=== PATIENT | female | born 1980 | race Two or more races ===

== ENCOUNTER 2024-12-24 08:06 | Outpatient (REF) | payer OTHER, SELFPAY ==
--- OUTSIDE RECORDS SUMMARY | 2024-12-24 11:22 | XMS_ITS | Clinical Summary ---
Author Organization [facility] Address [address] [place] [id number] Care Team Providers Care Frontend Engineer Name Role Phone Terrance Aguirre MD Primary Care Provider [phone] Allergies Active Allergy Reactions Criticality Noted Date [...] plaquenil She will check labs today at [facility] She will call senior firewall engineer to schedule her plaquenil clearance eye examination Allergic contact dermatitis due to metals 2017 Assessment & Plan (05/13/2018 2:38 PM EDT): To nickel (patient breaks with exposure to non sliver and gold metals) And to bandage adhesive (breaks out when wearing bandaids) Migraine Encounters Date Type Department Care Team Description 10/19/2024 Orders Only [facility] of Internal Medicine [address] [place] [address] Terrance Aguirre MD Low TSH level (Primary Dx) 10/16/2024 10:00 AM EST Office Visit [facility] Department of Internal Medicine [address] [place] [address] Terrance Aguirer MD Constipation, unspecified constipation type (Primary Dx); High triglycerides; Other specified hypothyroidism 10/16/2024 9:30 AM EST Lab [facility] Laboratory Draw Station [address] [place], [place] [id number] Annual physical exam; Urine abnormality 10/16/2024 Orders Only [facility] Department of Internal Medicine [address] [place] [address] Terrance Aguirre MD Urine abnormality (Primary Dx) [...] = 0.6 oz pur e alcohol) Occasionally Tang Songities Answer Date Recorded In the past 12 months has e [employer], gas, oil, or water [email or web address] threatened to shut off services in your home? No 10/16/2024 AUDIT-C Answer Date Recorded Q1: How often do you have a drink containing alc ohol? Monthly or less 04/12/2021 Average Number of Drinks Not on file 021 Frequency of Binge Drinking Not on file 03/25 PHQ-2 Answer Date Recorded PHQ-2 Score 0 02/07/2024 [facility] Occupat ional [facility] - Occupational Stress [...] [facility] were you [facility] or living in a fdc (including now)? No 10/16/2024 Comments No Sex [...] Upcoming Encounters Date Type Department Care Team ([facility] st Contact Info) Description 02/26/2025 9:40 AM EDT Office Visit [facility] Department of Internal Medicine [address] [place] [address] Terrance Aguirre MD [address] [facility] [address] FLOOR [facility] [address] Health Maintenance Due Date Last Done Comments [...] MD LAB URINE ORDERABLES Abril l Result [facility] [address] [place] [address], [place] [phone] * Harding boric acid tube, urine (10/16/2024 9:31 AM EST) Urine Urine specimen obtained by clean catch procedure / Unknown Non-blood Collection / Unknown 10/16/2024 9:31 AM EST 10/16/2024 9:36 AM EST Terrance Aguirre MD LAB MICROBIOLOGY - GENERA L ORDERABLES Final Result Performing Organization Address [facility] Co de Phone Number [facility] [address] [place] [address], [place] [phone] * (ABNORMAL) Complete Blood Count with Auto Differential (10/16/2024 9:31 AM EST) Pathologist [facility] [place] White Cell Count 7.1 3.6 - 11.0 10*3/uL 10/16/2024 12:[address] [facility] Red Cell Count 4.66 3.80 - 5.20 10*6/??L 10/16/2024 12:23 PM [facility] Hemoglobin 13.7 12.0 - 16.0 g/dL 10/16/2024 12:23 PM [facility] Hematocrit 41.4 35.0 - 47.0 % 10/16/2024 12:23 PM [facility] MCV 88.8 80.0 - 100.0 fL 10/16/2024 12:23 PM [facility] MCH 29.4 26.0 - 34.0 pg 10/16/2024 12:23 PM [facility] MCHC 33.1 32.0 - 36.0 g/dL 10/16/2024 12:23 PM [facility] RBC Distribution Width 13.2 11.6 - 14.8 % 10/16/2024 12:23 PM [facility] Platelet count 349 150 - 440 10*3/uL 10/16/2024 12:23 PM [facility] Neutrophils 53.9 40.0 - 70.0 % 10/16/2024 12:23 PM [facility] Immature Granulocytes 0.6 0.0 - 0.6 % 10/16/2024 12:23 PM [facility] Lymphocytes 33.8 20.0 - 50.0 % 10/16/2024 12:23 PM [facility] Monocytes 5.8 4.0 - 12.0 % 10/16/2024 12:23 PM [facility] Eosinophils 5.2 0.0 - 6.0 % 10/16/2024 12:23 PM [facility] Basophils 0.7 0.0 - 2.0 % 10/16/2024 12:23 PM [facility] Absolute Neutrophil Ct. 3.8 1.4 - 6.3 10*3/uL 10/16/2024 12:23 PM [facility] Absolute Lymphocyte Ct. 2.4 0.7 - 4.5 10*3/uL 10/16/2024 12:23 PM [facility] Absolute Monocyte Ct. 0.4 0.2 - 0.8 10*3/uL 10/16/2024 12:23 PM [facility] Absolute Eosinophil Ct. 0.4(H) 0.0 - 0.3 10*3/uL 10/16/2024 12:23 PM [facility] Absolute Basophil Ct. 0.1 0.0 - 0.2 10*3/uL 10/16/2024 12:23 PM [facility] nRBC 0.0 0.0 - 0.0 % 10/16/2024 12:23 PM [facility] Blood Venous blood specimen / Unknown Venipuncture / Unknown 10/16/2024 9:31 AM EST 10/16/2024 9:36 AM EST Terrance Aguirre MD LAB BLOOD ORDERABLES Abril l Result Performing Organization Address [facility] Co de Phone Number [facility] [address] [place] [address], * Neisseria gonorrhea NAAT (10/16/2024 9:31 AM EST) Neisseria gonorrhoeae ribosomal RNA Negative Negative 10/19/2024 2:06 PM EST [facility] Comment:Specimen is presumpt ively negative for Neisseria gonorrhoeae ribosomal RNA (rRNA). A negative result does not preclude the presence of a Neisseria gonorrhoeae infection because results are dependent on adequate specimen collection, absence of inhibitors, and sufficient rRNA to be detected. Urine Urine specimen / Unknown Non-blood Collection / Unknown 10/16/2024 9:31 AM EST 10/16/2024 9:36 AM EST Narrative [facility] - 10/19/2024 2:06 PM EST The Aptima Combo 2 Assay is a second-generation nucleic acid amplification test (NAAT) that utilizes target capture, Pin Sorter And Bagger-Mediated Amplification (TMA??), and Dual Kinetic Assay (DKA) technologies for the qualitative detection and differentiation of ribosomal RNA (rRNA) from Chlamydia trachomatis (CT) and / or Neisseria gonorrhoeae (GC). Terrance Aguirre MD LAB MICROBIOLOGY - GENERA L ORDERABLES Final Result Performing Organization Address City/[facility]/ZIP Co de Phone Number [facility] [address] [place] [address], * Chlamydia trachomatis NAAT (10/16/2024 9:31 AM EST) Chlamydia trachomatis ribosomal RNA Negative Negative 10/19/2024 2:06 PM EST [facility] Comment:Specimen is presumpt ively negative for Chlamydia trachomatis ribosomal RNA (rRNA). A negative result does not preclude the presence of a Chlamydia trachomatis infection because results are dependent on adequate specimen collection, absence of inhibitors, and sufficient rRNA to be detected. Urine Urine specimen / Unknown Non-blood Collection / Unknown 10/16/2024 9:31 AM EST 10/16/2024 9:36 AM EST Narrative [facility] - 10/19/2024 2:06 PM EST The Aptima Combo 2 Assay is a second-generation nucleic acid amplification test (NAAT) that utilizes target capture, Pin Sorter And Bagger-Mediated Amplification (TMA??), and Dual Kinetic Assay (DKA) technologies for the qualitative detection and differentiation of ribosomal RNA (rRNA) from Chlamydia trachomatis (CT) and / or Neisseria gonorrhoeae (GC). Terrance Aguirre MD LAB MICROBIOLOGY - GENERA L ORDERABLES Final Result [facility] [address] [place] [address], [place] [phone] * (ABNORMAL) Urinalysis, Complete - macroscopic and microscopic (10/16/2024 9:31 AM EST) Color Yellow Yellow, Straw, Dark yellow 10/16/2024 12:36 PM EST [facility] Clarity Clear Clear 10/16/2024 12:36 PM EST [facility] Specific [place] 1.025 >1.005 - <1.030 10/16/2024 12:36 PM EST [facility] pH 6.0 5.0 - 8.0 10/16/2024 12:[address] [facility] Glucose Qual Negative Negative mg/dL 10/16/2024 12:36 PM [facility] Protein, Qual Negative Negative, Trace mg/dL 10/16/2024 12:36 PM EST [facility] Ketones, Urine Negative Negative mg/dL 10/16/2024 12:36 PM EST [facility] Bilirubin, Urine Negative Negative 10/16/20 12:36 PM EST [facility] Hemoglobin Small(A) Negative 10/16/2024 12:36 PM EST [facility] Nitrite Positive(A) Negative 10/16/2024 12:36 PM EST [facility] Urobilinogen 1.0 0.2 - 1.0 EU/dL 10/16/2024 12:36 PM EST [facility] Leukocytes Small(A) Negative 10/16/2024 12:36 PM EST [facility] WBC 11-20(A) 0 - 5 /hpf 10/16/2024 12:36 PM EST [facility] RBC 11-20(A) 0 - 2 /hpf 10/16/2024 12:36 PM EST [facility] Epithelial Cells Few(A) None Seen /hpf 10/16/2024 12:36 PM EST [facility] Bacteria Many(A) Negative 10/16/2024 12:36 PM EST [facility] Casts 3-5 0-2, 3-5 lpf 10/16/2024 12:36 PM EST [facility] Urine Urine specimen obtained by clean catch procedure / Unknown Non-blood Collection / Unknown 10/16/2024 9:31 AM EST 10/16/2024 9:36 AM EST us Terrance Aguirre MD LAB URINE ORDERABLES Abril enciso Result [facility] [address] [place] [address], * (ABNORMAL) Urine culture (10/16/2024 9:31 AM EST) Urine Culture >100,000 cfu/mL Escherichia coli(A) CUCO 10/18/2024 12:29 PM EST [facility] Urine Urine specimen obtained by [...] L ORDERABLES Final Result Performing Organization Address City/[facility]/ZIP Co de Phone Number [facility] [address] [place] [address], * (ABNORMAL) TSH (10/16/2024 9:31 AM EST) TSH 0.31(L) 0.35 - 4.94 uIU/mL 10/16/2024 12:51 PM EST [facility] Blood Venous blood specimen / Unknown Venipuncture / Unknown 10/16/2024 9:31 AM EST 10/16/2024 9:36 AM EST Terrance Aguirre MD LAB BLOOD ORDERABLES NO S TAT Final Result [facility] [address] [place] [address], [place] [phone] * Hemoglobin A1c (10/16/2024 9:31 AM EST) Hemoglobin A1C 5.5 4.4 - 6.4 % 10/16/2024 12:27 PM EST [facility] Blood Venous blood specimen / Unknown Venipuncture / Unknown 10/16/2024 9:31 AM EST 10/16/2024 9:36 AM EST Narrative [facility] - 10/16/2024 12:27 PM EST [...] BLOOD ORDERABLES NO S TAT Final Result [facility] [address] [place] [address], * Lipid paneL, reflex to LDL cholesterol, direct (10/16/2024 9:31 AM EST) Triglycerides 254 mg/dL 10/16/2024 12:39 PM EST [facility] Comment: Normal: ? Less than [...] High Chol in Adults, March 2001. (2013)Recommendations: [place] [employer] Association/[place] College of Cardiology guidelines for cardiovascular/stroke risk are based on age, sex, race, total cholesterol, HDL cholesterol, blood pressure, blood pressure medication use, diabetes and smoking status. An AHA/ACC risk calculator can be found at http://www.cvriskcalculator.com. Cholesterol, HDL 35 mg/dL 10/16/20 12:39 PM [facility] Comment: High ?60 mg/dL or higher ? Low ? Less than 40 mg/dL ? Recommendations Adult Treatment Panel CDC: NIH Pub No [id number] 3rd report Earlene Chol Ed Prog (NCEP) Expert Panel ??on Detec, Eval, and Treat of High Cho in Adults, March 2001. (2013) Recommendations: [place] Heart Association/[place] College of Cardiology guidelines for cardiovascular/stroke risk are based on age, sex, race, total cholesterol, HDL cholesterol, blood pressure, blood pressure medication use, diabetes and smoking status. An AHA/ACC risk calculator can be found at http://www.cvriskcalculator.com. Fasting Specimen Yes 10/16/20 12:39 PM [facility] LDL Calculated 69 mg/dL 10/16/2024 12:39 PM [facility] Comment: Optimal ?Less than 100 mg/dL New optimal/above optimal ??100 - 129 mg/dL Borderline high ?130 - 159 mg/dL High ? 160 - 189 mg/dL Very high ?190 mg/dL or higher Blood Venous blood specimen / Unknown Venipuncture / Unknown 10/16/2024 9:31 AM EST 10/16/2024 9:36 AM EST us Terrance Aguirre MD LAB BLOOD ORDERABLES NO S TAT Final Result [facility] [address] [place] [address], * (ABNORMAL) Comprehensive metabolic panel (10/16/2024 9:31 AM EST) Total Bilirubin 0.4 0.1 - 1.2 mg/dL 10/16/2024 12:39 PM EST [facility] Calcium 9.8 8.4 - 10.2 mg/dL 10/16/2024 12:39 PM [facility] CO2 21(L) 23 - 32 mmol/L 10/16/2024 12:39 PM EST [facility] Chloride 109 100 - 111 mmol/L 10/16/2024 12:39 PM [facility] Creatinine 0.70 0.60 - 1.20 mg/dL 10/16/2024 12:39 PM [facility] Glucose 86 70 - 200 mg/dL 10/16/2024 12:39 PM [facility] Comment: Normal fasting glucose ?75-99 [...] 39 - 113 U/L 10/16/2024 12:39 PM [facility] Potassium 3.9 3.6 - 5.1 mmol/L 10/16/2024 12:39 PM [facility] Sodium 140 137 - 144 mmol/L 10/16/2024 12:39 PM [facility] Anion gap 10 3 - 11 mmol/L 10/16/2024 12:39 PM [facility] AST 15(L) 17 - 35 U/L 10/16/2024 12:39 PM [facility] ALT (SGPT) 19 8 - 39 U/L 10/16/2024 12:39 PM [facility] BUN 14 8 - 24 mg/dL 10/16/2024 12:39 PM [facility] Albumin 4.2 3.8 - 5.3 g/dL 10/16/2024 12:39 PM [facility] eGFR 109 >60 mL/min/1. 73m*2 10/16/2024 12:39 PM [facility] Comment: Calculation based on the [...] ? 75 ml/min/1.73 m2 ? Pursuant to [place] Public Act 06-120(1)(b)(1). ?? The 2020 CKD-EPI calculation used to estimate eGFR has only been validated for patients 18 years or older. Total Protein 7.2 6.2 - 8.1 g/dL 10/16/2024 12:39 PM EST [facility] Blood Venous blood specimen / Unknown Venipuncture / Unknown 10/16/2024 9:31 AM EST 10/16/2024 9:36 AM EST us Terrance Aguirre MD LAB BLOOD ORDERABLES Abril enciso Result [facility] [address] [place] [address], * HIV combo antigen/antibody (07/23/2022 10:01 AM EDT) HIV Combo AB/AG Negative Negative 07/23/2022 1:45 PM EDT [facility] Blood Venous blood specimen / Unknown Venipuncture / Unknown 07/23/2022 10:01 AM EDT 07/23/2022 10:01 AM EDT Narrative [facility] - 07/23/2022 1:45 PM EDT This test is a 4th generation HIV Antigen-Antibody Combination assay, using a chemiluminescent microparticle immunoassay, for the simultaneous qualitative detection of human immuno- deficiency virus (HIV) p24 antigen and antibodies to HIV type 1 (HIV-1) and/or HIV type 2 (HIV-2) in human serum or plasma. The The Micro HIV Ag/Ab Combo assay is intended to [...] BLOOD ORDERABLES NO S TAT Final Result [facility] [address] [place] [address], [place] [phone] * Hepatitis C antibody (07/17/2019 7:42 AM EDT) Hepatitis C Ab Negative Negative 07/17/2019 1:30 PM EDT [facility] Comment:Anti-HCV (HCVAb) Not Detected. Patient is presumed not to be infected with HCV. Blood specimen (specimen) Venous blood specimen / Unknown Venipuncture / Unknown 07/17/2019 7:42 AM EDT 07/17/2019 7:43 AM EDT us Terrance Aguirre MD LAB BLOOD ORDERABLES NO S TAT Final Result [facility] [address] [place] [address], from Last 3 Months or Most Recently Relevant to Health Maintenance Insurance [employer] PPO Care Teams Frontend Engineer Relationship Specialty Start Date End Date Terrance Aguirre MD [address] [facility] [address] FLOOR [facility] [place] [address] PCP - General Internal Medicine 07/16/19
[2024-12-24 16:55] LABS: Urine Cytology See Pathology rpt
== END 2024-12-24 08:07 | disposition home or self-care (01) ==
LOC: HO.LAB 08:06
PROVIDERS: Visit Provider Nurse Practitioner Family
DX: R31.29 Other microscopic hematuria (principal); N39.0 Urinary tract infection, site not specified
CPT/HCPCS: 88112; 99202

== ENCOUNTER 2024-12-24 08:06 | Outpatient (AMB) | payer OTHER, SELFPAY ==
--- NOTE | 2024-12-24 08:11 | A.OFFVIS_ITS ---
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: No Allergies copper Allergy (Verified 12/24/24 08:12) Unknown zolmitriptan [From Zomig] Allergy (Verified 12/24/24 08:12) Unknown propanolol Allergy (Uncoded 12/24/24 08:12) Unknown latex Adverse Reaction (Mild, Uncoded 12/24/24 08:19) Itching Medication List - Last Reconciled 12/24/24 by CANDY LeongP- albuterol sulfate 90 mcg/actuation inhalation levonorgestrel-ethinyl estrad 0.15-0.03 mg (Levora-28) tabs PO levothyroxine (Synthroid) 125 mcg PO DAILY Is last menstrual period known: Yes Post menopausal: No Patient : No HPI Comments Details: Yue is a very pleasant 44-year-old female patient of Dr. Guillory. She has a past medical history of sleep apnea, migraines, hypothyroidism, hyperlipidemia, and asthma. She presents to the office today as a new patient for recurrent urinary tract infections. In discussion with the patient today she reports over the summer having multiple months of recurrent UTIs and UTI like symptoms at which time she followed up with her primary care provider at the [place] at which time recommendations were made for urology referral for further assessment evaluation. She reports over the last 2 months she has had no bothersome urinary issues or concerns. She reports a previous history of following up with Dr. Coreas a few years ago for her longstanding history of microscopic hematuria. She reports typical UTI like symptoms are lower back pain, foul-smelling urine, and pruritus to the vaginal area. She also reports having followed up with her ob gyn physician assistant although she has not been sexually active in over a year and had workup for STDs that were within normal limits. In office urinalysis results reviewed with the patient today negative leukocytes negative nitrates, 3+ microscopic hematuria. She denies any previous history of nicotine dependence however was in the active and believes she had known chemical exposure. We discussed at length potential causes of microscopic hematuria as well as recurrent urinary tract infections. She does report a longstanding history of constipation. PVR 0. We discussed further treatment options and risks and benefits of these treatment options. Will obtain retroperitoneal ultrasound for further assessment evaluation. She discusses her upcoming trip overseas next month for approximately 1 month. She otherwise offers no other issues or concerns at this time. [facility] Medical History Unspecified asthma, uncomplicated Unspecified abnormal cytological findings in specimens from cervix uteri Other unknown and unspecified cause of morbidity or mortality Sleep apnea Peptic ulcer Overweight Other microscopic hematuria Migraine without aura, not intractable, without status migrainosus Knee pain Hypothyroidism Hyperlipidemia, unspecified Encounter for other general counseling and advice on contraception Disorder of thyroid Contact with and (suspected) exposure to other hazardous substances Contact with and (suspected) exposure to other environmental pollution Asymptomatic varicose veins of unspecified lower extremity Abdominal pain Review of Systems Const All systems reviewed & are unremarkable except as noted in HPI and below Physical Exam Const General: cooperative, healthy appearing, comfortable, no acute distress, well developed, alert and awake Orientation/consciousness: patient oriented x3 Limitations: no limitations HEENT Head: Yes normal to inspection, Yes normocephalic and Yes atraumatic Ears: hearing grossly normal bilaterally Eyes General: appearance normal, both eyes and all related structures Neck Neck: Yes normal visual inspection and Yes trachea midline Chest Chest palpation & inspection: normal inspection of the chest Resp Effort & Inspection: normal respiratory effort and able to speak in complete sentences Cardio Rate: regular rate GI Inspection: Yes normal to inspection General: Yes no CVA tenderness Back/Spine/Pelvis Back: no CVA tenderness Skin General skin exam: no rashes or lesions noted Neuro General: patient oriented x3 Extrem General: Yes normal to inspection Psych Appearance: grossly normal and well kempt Mental Status: mental status grossly normal Speech and movement: Normal speech and movement present and Clear speech present Affect: normal affect Attitude: cooperative Thought process: Normal thought process present Thought content: Normal thought content present Insight: Fair insight present (Psych) Judgement: Fair judgement present (Psych) Assessment & Plan Assessment & Plan (1) Recurrent urinary tract infection: Code(s): N39.0 - Urinary tract infection, site not specified Category: Medical (2) Microscopic hematuria: Code(s): R31.29 - Other microscopic hematuria Category: Medical Plan In office urinalysis results reviewed with the patient today; as noted above; w ill send for urine cytology. PVR 0 mL. We discussed at length potential causes of recurrent urinary tract infections as well as microscopic hematuria. We discussed interventions for recurrent urinary tract infections and risks and benefits of these interventions. All questions were answered. Will obtain retroperitoneal ultrasound for further assessment evaluation. Discussed UTI prevention with D mannose supplement, vitamin-C, increasing fluid intake, behavioral therapy with timed voiding, perineal hygiene and postcoital voiding, and management of constipation with stool softeners and increased fiber intake. We discussed possible near future microgen for further assessment evaluation. Follow-up in 1-3 months with imaging and PVR; or sooner with any issues, concerns, and or questions. Orders: Orders US retroperitoneal comp Today N39.0 - Urinary tract infection, site not specified Urine Cytology Today N39.0 - Urinary tract infection, site not specified, R31.29 - Other microscopic hematuria Patient Instructions: The patient had an opportunity to ask questions regarding the treatment plan. All questions were answered. Physical exam, labs, and imaging were discussed and reviewed in detail. As well as risks, benefits, and discussion of treatment choices. No major barriers to understanding were identified. The patient expressed understanding and agreement with the above treatment plan. The patient was made aware they should contact our office by phone for worsening of their current condition, the appearance of new symptoms, or with any questions or concerns. Compliance is encouraged with any medications and follow up testing that is ordered. It is a privilege to be allowed the opportunity to participate in? your urological care.? Again, if you have any questions or concerns If you have any questions or concerns please do not hesitate to contact me. The office is [phone]. This note is constructed using voice recognition software. While every effort has been made to ensure accuracy stenciling machine tender errors may have been included. Yours sincerely, ANAND Leong Coding Level of Care Code New Pt Level 3 (79024) Diagnoses Recurrent urinary tract infection N39.0 Microscopic hematuria R31.29
--- OUTSIDE RECORDS SUMMARY | 2024-12-24 10:58 | XMS_ITS | Data Portability ---
Author Organization [facility] [id number] Address [address] [place] [address] Assessment No assessment recorded. Plan of Treatment Reminders Order Date Submit Date Provider Last Modified By Organization Details Last Modified Time Details Appointments None recorded. Lab None recorded. Referral None recorded. Procedures None recorded. Surgeries None recorded. Imaging None recorded. Medication Orders prednisone 20 mg tablet 2023 024 [id number], [address], [place], [id number], 4 12:12:48 hydroxyzine HCl 25 mg tablet 2023 024 [id number], [address], [place], [id number], 4 12:12:15 Patient TargetsNo targets recorded. Patient InstructionsNo instructions recorded. Reason for Referral None Reported. Problems Name Problem SNOMED Code Status Onset Date Resolution Date Notes Provider Name and Address Organization Details Recorded Time Hypothyroidism 16968486 Active Ebony Carrie null, [place] - [facility] 4 10:45:09 Migraine 15962886 Active Ebony Carrie null, [place] - [facility] 4 10:45:16 Allergic contact dermatitis 687431789 Active 2023 Ankit Wen NP [address] [place], [address] , [place] - [facility] 4 11:54:00 Problem Notes None recorded. Procedures Surgical History Date Name Laterality Status Provider Name and Address Organization Details Recorded Time procedure on gallbladder completed Ebony Carrie PA - [facility] 06/29/2024 10:46:23 Imaging Results None recorded. Procedure Notes None recorded. Medical Equipment None Reported. Allergies No known drug allergies Medications Name Sig Start Date Stop Date Status Note LastModified by Organization Details LastModified Time prednisone 20 mg tablet Take 2 tablets every day by oral route in the morning for 4 days, for rash, inflamma tion, allergic . 2023 active Not Available Not Available Not Avai lable hydroxyzine HCl 25 mg tablet Take 1 tablet 3 times a day by oral route as needed for 7 days, for itchy rash. 2023 active Not Available Not Available Not Avai lable Levora-28 0.15 mg-0.03 mg tablet TAKE 1 TABLET BY MOUTH DAILY active Not Available Not Available No t Available levothyroxine active Not Available Not Available Not Available topiramate active Not Available Not Av ailable Not Available Vitals Date Recorded Body height Provider Name an d Address Organization Details Last Updated DateTime 06/29/2024 154.94 cm Ebony Carrie PA - [facility] 06/29/2024 10:44:16 Date Recorded Body mass index (BMI) Body weight Provider Name and Address Organization Details Last Updated DateTime 06/29/2024 31.2 kg/m2 13548.74 g Ebony Carrie PA - [facility] 06/29/2024 10:44:22 Date Recorded Body temperature Provider Name a nd Address Organization Details Last Updated DateTime 06/29/2024 98.4 [degF] Ebony Carrie PA - [facility] 06/29/2024 10:47:09 Date Recorded Respiratory rate Provider Name a nd Address Organization Details Last Updated DateTime 06/29/2024 17 /min Ebony Carrie PA - [facility] 06/29/2024 10:47:12 Date Recorded Oxygen saturation Oxygen saturation in Arterial blood by Pulse oximetry Provider Name and Address Organization Details Last Updated DateTime 06/29/2024 98 % 98 % Ebony Carrie PA - [facility] 06/29/2024 10:47:20 Date Recorded Heart rate Provider Name an d Address Organization Details Last Updated DateTime 06/29/2024 76 /min Ebony Carrie PA - [facility] 06/29/2024 10:47:24 Date Recorded Systolic blood pressure Diastolic blood pressure Provider Name and Address Organization Details Last Updated DateTime 06/29/2024 114 mm[Hg] 79 mm[Hg] Ebony Carrie PA - [facility] 06/29/2024 10:48:21 Social History Question Answer Notes LastModified by Organizat ion Details LastModified Time Tobacco Smoking Status Never Smoker Ebony Carrie null, [place] - [facility] 06/29/2024 10:45:31 What Is Your Level Of Alcohol Consumption? Occasional Information not available 06/29/2024 Are You Currently Employed? Yes Information not available 06/29/2024 What Is Your Relationship Status? Single Information not available 06/29/2024 Do You Use Any Illicit Or Recreational Drugs? No Information not available 06/29/2024 [facility] You [facility]ed [facility]? [facility] Information not available 06/29/2024 Do You Or Have You Ever Used Any Other Forms Of Tobacco Or Nicotine? No Information not available 06/29/2024 Sex: Unknown Functional Status None recorded. Mental Status None recorded. Family History Nothing Reported. Medical History No medical history recorded. Gynecological History Statement/Question Response Date of LMP 06/01/2024 Is there any chance of ? No LMP Approximate Obstetrics History GPAL:G 0 P 0 0 0 0 Immunizations Vaccine Type Date Status Note Provider Nam e and Address Organization Details Recorded Time COVID-19, mRNA, LNP-S, PF, 100 mcg/0.5mL dose or 50 mcg/0.25mL dose 10/14/2021 completed Ebony Carrie null, [place] - [facility] 06/29/2024 10:44:26 COVID-19, mRNA, LNP-S, bivalent, PF, 30 mcg/0.3 mL dose 11/04/2022 completed Ebony Carrie null, [place] - [facility] 06/29/2024 10:44:26 Influenza, split virus, quadrivalent, PF 08/16/2023 completed Ebony Carrie null, [place] - [facility] 06/29/2024 10:44:26 Influenza, split virus, quadrivalent, PF 08/17/2022 completed Ebony Carrie null, [place] - [facility] 06/29/2024 10:44:26 Influenza, split virus, quadrivalent, PF 09/12/2020 completed Ebony Carrie null, [place] - [facility] 06/29/2024 10:44:27 Influenza, split virus, quadrivalent, PF 09/13/2017 completed Ebony Carrie null, [place] - [facility] 06/29/2024 10:44:27 Influenza, split virus, quadrivalent, PF 09/15/2018 completed Ebony Carrie null, [place] - [facility] 06/29/2024 10:44:27 Past Encounters Encounter ID Performer Location Encounter Start Date Encounter Closed Date Diagnosis/Indication Diagnosis SNOMED-CT Code Diagnosis ICD10 Code Diagnosis Note [id number] [address] [place] [address] 01/14/2019 09:44:00 01/14/2019 10:38:57 [id number] [address] [place] [address] 04/03/2021 16:10:21 04/03/2021 18:49:06 [id number] [address] [place] [address] 09/20/2020 16:50:00 09/20/2020 19:14:44 [id number] [address] [place] [address] 04/20/2018 18:39:03 04/20/2018 19:19:22 [id number] [address] [place] [address] 04/24/2021 09:02:33 04/24/2021 09:47:36 [id number] Ankit Wen NP [address] [place] [address] 06/29/2024 10:12:55 06/29/2024 11:55:57 Allergic contact dermatitis 341466892 L23.9 Based on your presentati on and exam - I am diagnosis you with Contact Dermatitis This most likely can be related to dyes or environmen nery exposures. The following recommenda tions will help you with your symptoms.: 1. Cool Compresses to the itchy areas. Heat will only make the rash.2. Do not scratch or itch - this can lead to infection. 3. Take Antihistam smith - like benadryl - this will help - but when the medication s wear off the redness might return. You need to go directly to the ER if you develop:1. Wheezing2. Throat or tongue swelling3. Difficulty breathing4 . If you pass out. Health Concerns Section Related Observation LastModified by Organization Detai ls LastModified Time None Recorded Concern Status LastModified by Organization Details LastModified Time None Recorded Advance Directives Directive None Recorded Payers Encounter Date Sequence Insurance Name Policy Number Policy Julio Covered Member ID Julio Member ID Guarantor Name 01/14/2019 1 [employer] [id number] Yue Charleen [id number] Yue Charleen 09/20/2020 1 [employer] [id number] Yue Charleen [id number] Yue Charleen 04/03/2021 1 [employer] [id number] Yue Charleen [id number] Yue Charleen 04/24/2021 1 [employer] [id number] Yue Charleen [id number] Yue Charleen 06/29/2024 1 [employer] [id number] Yue Charleen [id number] Yue Charleen Notes Date Note Type Note Provider Name and Address Organization Details Recorded Time 4 text/html UC Rash/Skin LesionReported bypatient.source of patient informationInformation obtained from patient; Patient arrived at Urgent Care ambulatory; Patient came back from vacation from [facility] starts developing a rash into 1 week. The the rash is diffuse macular kind flat itchy also bilateral lower legs and bilateral buttocks also present on upper arms. There is no open area there is no drainage. Patient came here for further evaluation. Location:arms; buttocks; legs Quality:itchy;red;spreading Severity:moderate Duration:1 weeks Context:recent travel;other exposure; no new detergent or skin product; no recent change in medication; no exposure to hair dye; no expsoure to new clothes/jewelry; no recent illness; no pets/animals in home; not affiliated with chemicals/pesticides Alleviating Factors:nothing gives relief Associated Symptoms:no fever; no fatigue Treatment History:no history of treatment Ankit Wen NP [address] [place], [address], [place] - [facility] 06/29/2024 11:56:21 OBGyn Episode No OBEpisode recorded.
--- OUTSIDE RECORDS SUMMARY | 2024-12-24 10:58 | XMS_ITS | Clinical Summary ---
Author Organization [facility] Address [address] [place] [id number] Care Team Providers Care Quad Stayer Name Role Phone Terrance Aguirre MD Primary Care Provider [phone] Allergies Active Allergy Reactions Criticality Noted Date Comments Copper Rash Low 07/16/2019 Other Nausea And Vomiting 09/15/2009 Propranolol Nausea And Vomiting 09/15/2009 Zolmitriptan 06/22/2022 Medications * This document contains information received from the source organization and may not represent a complete record from that organization. LEVORA-28 0.15-0.03 mg per tablet 03/31/2018 Active levothyroxine (SYNTHROID, LEVOTHROID) 137 mcg tablet Take 137 mcg by mouth Daily before breakfast. Active topiramate (TOPAMAX) 100 mg tablet Take 100 mg by mouth nightly. Active loratadine (CLARITIN) 10 mg tablet Take 10 mg by mouth in the morning. Active albuterol HFA 90 mcg/actuation inhaler Inhale. 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 Check labs today Follow up 6 months for refills, topical cortisone and labs Assessment & Plan (05/13/2018 2:47 PM EDT): Discussed diagnosis, etiology, and natural course and need for sun avoidance. 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 to schedule her plaquenil clearance eye examination Allergic contact dermatitis due to metals 2017 Assessment & Plan (05/13/2018 2:38 PM EDT): To nickel (patient breaks with exposure to non sliver and gold metals) And to bandage adhesive (breaks out when wearing bandaids) Migraine Encounters Date Type Department Care Team Description 10/19/2024 Orders Only [facility] [address] [place] [address] Terrance Aguirre MD Low TSH level (Primary Dx) 10/16/2024 10:00 AM EST Office Visit [facility] Department of Internal Medicine [address] [place] [id number] Terrance Aguirre MD Constipation, unspecified constipation type (Primary Dx); High triglycerides; Other specified hypothyroidism 10/16/2024 9:30 AM EST Lab [facility] Laboratory Draw Station [address] [place], [place] [id number] Annual physical exam; Urine abnormality 10/16/2024 Orders Only [facility] Department of Internal Medicine [address] [place] [id number] Terrance Aguirre MD Urine abnormality (Primary Dx) from Last 3 Months Immunizations Name Administration Dates Next Due COVID-19 MRNA (MODERNA) 10/14/2021 COVID-19 mRNA (PFIZER) 12/31/2020,12/10/2020 DTaP, Unspecified 11/25/2005,12/26/2002 Influenza (IM) Preservative Free 09/01/2015 Influenza TIV (IM) 09/25/2019, 9,09/13/2017,2010 Influenza, Injectable, Quadr ivalent, Preservative Free 08/16/2023,08/17/2022,10/09/2021,2019 Influenza, Quadrivalent 10/09/2021,09/12/2020, Influenza, Seasonal, Injectable 09/25/2019,09/13 Influenza, Unspecified 08/31/2016,2014,08/13/2014,2012,09/25/2012,08/15/2012,10/25/2011,1 Rabies - Im Fibroblast Culture 06/06/2023 Td, Unspecified 11/25/2016,11/25/2002 Tdap 05/30/2023,11/25/2005 Typhoid Inactivated 06/06/2023 Family History Medical History Relation Comments No Known Problems Brother No Known Problems Father No Known Problems Mother Cancer Neg Hx No H/O cancer in family per patient Heart disease Neg Hx No H/O Heart dis ease in family per patient Relation Status Comments Brother Alive Father Alive Mother Alive Social History Tobacco Use Types Packs/Day Years Used Date Smoking Tobacco: Never Smokeless Tobacco: Never Alcohol Use Standard Drinks/Week Comments Yes 3 (1 standard drink = 0.6 oz pur e alcohol) Occasionally [employer] Answer Date Recorded In the past 12 months has e Com[employer], gas, oil, or water emere threatened to shut off services in your home? No 10/16/2024 AUDIT-C Answer Date Recorded Q1: How often do you have a drink containing alc ohol? Monthly or less 04/12/2021 Average Number of Drinks Not on file 021 Frequency of Binge Drinking Not on file 03/25 PHQ-2 Answer Date Recorded PHQ-2 Score 0 02/07/2024 [facility] Occupat ional Health - Occupational Stress Questionnaire Answer Date Recorded Do you feel stress - tense, restless, nervous, or anxious, or unable to sleep at night because your mind is troubled all the time - these days? Not at all 04/12/2021 Exercise Vital Sign Answer Date Recorde d On average, how many days pe r week do you engage in moderate to strenuous exercise (like a brisk walk)? 3 days 04/12/2021 On average, how many minutes do you engage in exercise at this level? 30 min 04/12/2021 Hunger Vital Sign Answer Date Recorded Within the past 12 months, y ou worried that your food would run out before you got the money to buy more. Never true 10/16/20 24 Within the past 12 months, t he food you bought just didn't last and you didn't have money to get more. Never true 10/16/2024 PRAPARE - Transportation Answer Date Re corded In the past 12 months, has l ack of transportation kept you from medical appointments or from getting medications? No 09/26 In the past 12 months, has l ack of transportation kept you from meetings, work, or from getting things needed for daily living? No 10/16/2024 Housing Stability Vital Sign Answer Jamie e Recorded In the last 12 months, was t here a time when you were not able to pay the mortgage or rent on time? No 10/16/2024 Number of Times Moved in the Last Year Not on fi le 10/16/2024 At any time in the past 12 m [facility], were you homeless or living in a correction (including now)? No 10/16/2024 Comments No Sex and Gender Information Value Date Recorded Sex Assigned at Female 02/07/2024 11:40 AM EDT Legal Sex Female 11:47 AM EST Gender Identity Female 02/07/2024 11:40 AM EDT Sexual Orientation Not on file Last Filed Vital Signs Vital Sign Reading Time Taken Comments Blood Pressure 114/77 10/16/2024 10:10 AM EST Pulse 67 10/16/2024 10:10 AM EST Temperature 36.8 ??C (98.3 ??F) 10/16/2024 1 0:10 AM EST Respiratory Rate 14 01/26/2020 2:50 PM EST Oxygen Saturation 100% 10/16/2024 10: 10 AM EST Inhaled Oxygen Concentration - - Weight 71.9 kg (158 lb 8 oz) 10/16/2024 10:10 AM EST Height 154.9 cm (5' 0.98 ) 10/16/2024 1 0:10 AM EST carried from last visit Body Mass Index 29.96 10/16/2024 10:10 AM EST Plan of Treatment Upcoming Encounters Date Type Department Care Team ([facility] st Contact Info) Description 02/26/2025 9:40 AM EDT Office Visit [facility] Department of Internal Medicine [address] [place] [address] Terrance Aguirre MD [address] [facility] 2ND FLOOR [facility] [address] Health Maintenance Due Date Last Done Comments Breast Cancer Screening 1980 Pneumococcal Vaccine: Pediatrics (0 to 5 Years) and At-Risk Patients (6 to 64 Years) (1 of 2 - PCV) 1986 Hepatitis B Vaccines (1 of 3 - 19+ 3-dose series) 1999 Pap Smear 2001 Cervical Cancer Screening 2010 HPV/Cotest 2010 Zoster Vaccines (1 of 2) 2030 DTaP,Tdap,and Td Vaccines (6 - Td or Tdap) 05/30/2033 05/30/2023, 11/25/2016, 11/25/2005, Additional history exists Hepatitis C Screening Completed 07/17/2019 HIV Screening Completed 07/23/2022 COVID-19 Vaccine Completed 08/12/2024, 09/2022, 10/14/2021, Additional history exists Influenza Vaccine Completed 08/22/2024, , 08/16/2023, Additional history exists HPV Vaccines Aged Out No longer eligi ble based on patient's age to complete this topic Hepatitis A Vaccines Aged Out No long er eligible based on patient's age to complete this topic MMR Vaccines Aged Out No longer eligi ble based on patient's age to complete this topic Meningococcal Vaccine Aged Out No stephen marcial eligible based on patient's age to complete this topic Procedures Procedure Name Priority Date/Time Associated Diagnosis Comments YELLOW NON-PRESERVATIVE HOLD TUBE, URINE Routine 10/16/2024 9:31 AM EST Annual physical exam URINALYSIS, COMPLETE - MACROSCOPIC AND MICROSCOPIC Routine 10/16/2024 9:31 AM EST Annual physical exam COMPLETE BLOOD COUNT WITH AUTO DIFFERENTIAL Routine 10/16/2024 9:31 AM EST Annual physical exam URINALYSIS, COMPLETE - MACROSCOPIC AND MICROSCOPIC (PANEL) Routine 10/16/2024 9:31 AM EST Annual physical exam TSH Routine 10/16/2024 9:31 AM EST Annual physical exam LIPID PANEL, REFLEX TO LDL CHOLESTEROL, DIRECT Routine 10/16/2024 9:31 AM EST Annual physical exam HEMOGLOBIN A1C Routine 10/16/2024 9:31 AM EST Annual physical exam COMPREHENSIVE METABOLIC PANEL Routine 10/16/2024 9:31 AM EST Annual physical exam COMPLETE BLOOD COUNT AND DIFFERENTIAL Routine 10/16/2024 9:31 AM EST Annual physical exam URINE CULTURE Add-On 10/16/2024 9:31 AM EST Urine abnormality HARDING BORIC ACID TUBE, URINE Routine 10/16/2024 9:31 AM EST Annual physical exam NEISSERIA GONORRHEA NAAT Routine 10/16/2024 9:31 AM EST Annual physical exam CHLAMYDIA TRACHOMATIS NAAT Routine 10/16/2024 9:31 AM EST Annual physical exam NEISSERIA GONORRHOEAE/CHLAMYDIA TRACHOMATIS NAAT Routine 10/16/2024 9:31 AM EST Annual physical exam HIV COMBO ANTIGEN/ANTIBODY Routine 07/23/2022 10:01 AM EDT Encounter for general adult medical examination with abnormal findings HEPATITIS C ANTIBODY Routine 07/17/2019 7:42 AM EDT Tiredness from Last 3 Months or Most Recently Relevant to Health Maintenance Results * Yellow top, urine (10/16/2024 9:31 AM EST) Urine Urine specimen / Unknown Non-blood Collection / Unknown 10/16/2024 9:31 AM EST 10/16/2024 9:36 AM EST Terrance Aguirre MD LAB URINE ORDERABLES Abril l Result [facility] [address] [place] [address], [place] [phone] * Harding boric acid tube, urine (10/16/2024 9:31 AM EST) Urine Urine specimen obtained by clean catch procedure / Unknown Non-blood Collection / Unknown 10/16/2024 9:31 AM EST 10/16/2024 9:36 AM EST Terrance Aguirre MD LAB MICROBIOLOGY - GENERA L ORDERABLES Final Result Performing Organization Address [facility] Co de Phone Number [facility] [address] [place] [address], [place] [phone] * (ABNORMAL) Complete Blood Count with Auto Differential (10/16/2024 9:31 AM EST) Pathologist [facility] White Cell Count 7.1 3.6 - 11.0 10*3/uL 10/16/2024 12:23 PM [facility] Red Cell Count 4.66 3.80 - 5.20 10*6/??L 10/16/2024 12:23 PM [facility] Hemoglobin 13.7 12.0 - 16.0 g/dL 10/16/2024 12:23 PM [facility] Hematocrit 41.4 35.0 - 47.0 % 10/16/2024 12:23 PM [facility] MCV 88.8 80.0 - 100.0 fL 10/16/2024 12:23 PM [facility] MCH 29.4 26.0 - 34.0 pg 10/16/2024 12:23 PM [facility] MCHC 33.1 32.0 - 36.0 g/dL 10/16/2024 12:23 PM [facility] RBC Distribution Width 13.2 11.6 - 14.8 % 10/16/2024 12:23 PM [facility] Platelet count 349 150 - 440 10*3/uL 10/16/2024 12:23 PM [facility] Neutrophils 53.9 40.0 - 70.0 % 10/16/2024 12:23 PM [facility] Immature Granulocytes 0.6 0.0 - 0.6 % 10/16/2024 12:23 PM [facility] Lymphocytes 33.8 20.0 - 50.0 % 10/16/2024 12:23 PM [facility] Monocytes 5.8 4.0 - 12.0 % 10/16/2024 12:23 PM [facility] Eosinophils 5.2 0.0 - 6.0 % 10/16/2024 12:23 PM [facility] Basophils 0.7 0.0 - 2.0 % 10/16/2024 12:23 PM [facility] Absolute Neutrophil Ct. 3.8 1.4 - 6.3 10*3/uL 10/16/2024 12:23 PM [facility] Absolute Lymphocyte Ct. 2.4 0.7 - 4.5 10*3/uL 10/16/2024 12:23 PM [facility] Absolute Monocyte Ct. 0.4 0.2 - 0.8 10*3/uL 10/16/2024 12:23 PM [facility] Absolute Eosinophil Ct. 0.4(H) 0.0 - 0.3 10*3/uL 10/16/2024 12:23 PM [facility] Absolute Basophil Ct. 0.1 0.0 - 0.2 10*3/uL 10/16/2024 12:23 PM [facility] nRBC 0.0 0.0 - 0.0 % 10/16/2024 12:23 PM [facility] Blood Venous blood specimen / Unknown Venipuncture / Unknown 10/16/2024 9:31 AM EST 10/16/2024 9:36 AM EST Terrance Aguirre MD LAB BLOOD ORDERABLES Abril l Result Performing Organization Address [facility] Co de Phone Number [facility] [address] [place] [address], * Neisseria gonorrhea NAAT (10/16/2024 9:31 AM EST) Neisseria gonorrhoeae ribosomal RNA Negative Negative 10/19/2024 2:[address] [facility] Comment:Specimen is presumpt ively negative for Neisseria gonorrhoeae ribosomal RNA (rRNA). A negative result does not preclude the presence of a Neisseria gonorrhoeae infection because results are dependent on adequate specimen collection, absence of inhibitors, and sufficient rRNA to be detected. Urine Urine specimen / Unknown Non-blood Collection / Unknown 10/16/2024 9:31 AM EST 10/16/2024 9:[address] [facility] - 10/19/2024 2:06 PM EST The Aptima Combo 2 Assay is a second-generation nucleic acid amplification test (NAAT) that utilizes target capture, Electric Golf Cart Repairer-Mediated Amplification (TMA??), and Dual Kinetic Assay (DKA) technologies for the qualitative detection and differentiation of ribosomal RNA (rRNA) from Chlamydia trachomatis (CT) and / or Neisseria gonorrhoeae (GC). Terrance Aguirre MD LAB MICROBIOLOGY - GENERA L ORDERABLES Final Result Performing Organization Address City/[facility]/ZIP Co de Phone Number [facility] [address] [place] [address], * Chlamydia trachomatis NAAT (10/16/2024 9:31 AM EST) Chlamydia trachomatis ribosomal RNA Negative Negative 10/19/2024 2:[address] [facility] Comment:Specimen is presumpt ively negative for Chlamydia trachomatis ribosomal RNA (rRNA). A negative result does not preclude the presence of a Chlamydia trachomatis infection because results are dependent on adequate specimen collection, absence of inhibitors, and sufficient rRNA to be detected. Urine Urine specimen / Unknown Non-blood Collection / Unknown 10/16/2024 9:31 AM EST 10/16/2024 9:[address] [facility] - 10/19/2024 2:06 PM EST The Aptima Combo 2 Assay is a second-generation nucleic acid amplification test (NAAT) that utilizes target capture, Electric Golf Cart Repairer-Mediated Amplification (TMA??), and Dual Kinetic Assay (DKA) technologies for the qualitative detection and differentiation of ribosomal RNA (rRNA) from Chlamydia trachomatis (CT) and / or Neisseria gonorrhoeae (GC). Terrance Aguirre MD LAB MICROBIOLOGY - GENERA L ORDERABLES Final Result [facility] [address] [place] [address], [place] [phone] * (ABNORMAL) Urinalysis, Complete - macroscopic and microscopic (10/16/2024 9:31 AM EST) Color Yellow Yellow, Straw, Dark yellow 10/16/2024 12:[address] [facility] Clarity Clear Clear 10/16/2024 12:[address] [facility] Specific [place] 1.025 >1.005 - <1.030 10/16/2024 12:[address] [facility] pH 6.0 5.0 - 8.0 10/16/2024 12:36 PM [facility] Glucose Qual Negative Negative mg/dL 10/16/2024 12:36 PM [facility] Protein, Qual Negative Negative, Trace mg/dL 10/16/2024 12:[address] [facility] Ketones, Urine Negative Negative mg/dL 10/16/2024 12:[address] [facility] Bilirubin, Urine Negative Negative 10/16/20 12:[address] [facility] Hemoglobin Small(A) Negative 10/16/2024 12:[address] [facility] Nitrite Positive(A) Negative 10/16/2024 12:[address] [facility] Urobilinogen 1.0 0.2 - 1.0 EU/dL 10/16/2024 12:[address] [facility] Leukocytes Small(A) Negative 10/16/2024 12:[address] [facility] WBC 11-20(A) 0 - 5 /hpf 10/16/2024 12:[address] [facility] RBC 11-20(A) 0 - 2 /hpf 10/16/2024 12:[address] [facility] Epithelial Cells Few(A) None Seen /hpf 10/16/2024 12:[address] [facility] Bacteria Many(A) Negative 10/16/2024 12:[address] [facility] Casts 3-5 0-2, 3-5 lpf 10/16/2024 12:[address] [facility] Urine Urine specimen obtained by clean catch procedure / Unknown Non-blood Collection / Unknown 10/16/2024 9:31 AM EST 10/16/2024 9:36 AM EST us Terrance Aguirre MD LAB URINE ORDERABLES Abril enciso Result [facility] [address] [place] [address], * (ABNORMAL) Urine culture (10/16/2024 9:31 AM EST) Urine Culture >100,000 cfu/mL Escherichia coli(A) CUCO 10/18/2024 12:[address] [facility] Urine Urine specimen obtained by clean catch procedure / Unknown Non-blood Collection / Unknown 10/16/2024 9:31 AM EST 10/16/2024 9:36 AM EST Narrative Organism Antibiotic Method Susceptibility Escherichia coli Ampicillin CUCO >16: Resistant Escherichia coli Cefazolin CUCO <2: Susceptible Escherichia coli Ceftriaxone CUCO <1: Susceptible Escherichia coli Ciprofloxacin CUCO <0.25: Susceptible Escherichia coli Gentamicin CUCO <4: Susceptible Escherichia coli Meropenem CUCO <1: Susceptible Escherichia coli Nitrofurantoin CUCO <32: Susceptible Escherichia coli Piperacillin + Tazobactam CUCO <16: Susceptible Escherichia coli Trimethoprim + Sulfamethoxazole CUCO >2/38: Resistant Terrance Aguirre MD LAB MICROBIOLOGY - GENERA L ORDERABLES Final Result Performing Organization Address City/[facility]/ZIP Co de Phone Number [facility] [address] [place] [address], * (ABNORMAL) TSH (10/16/2024 9:31 AM EST) TSH 0.31(L) 0.35 - 4.94 uIU/mL 10/16/2024 12:[address] [facility] Blood Venous blood specimen / Unknown Venipuncture / Unknown 10/16/2024 9:31 AM EST 10/16/2024 9:36 AM EST Terrance Aguirre MD LAB BLOOD ORDERABLES NO S TAT Final Result [facility] [address] [place] [address], [place] [phone] * Hemoglobin A1c (10/16/2024 9:31 AM EST) Hemoglobin A1C 5.5 4.4 - 6.4 % 10/16/2024 12:[address] [facility] Blood Venous blood specimen / Unknown Venipuncture / Unknown 10/16/2024 9:31 AM EST 10/16/2024 9:[address] [facility] - 10/16/2024 12:27 PM EST HbA1C greater than or equal to 6.5% diagnosis for Diabetes Mellitus. In the absence of unequivocal hyperglycemia, test should be confirmed by repeat testing. ADA Guidelines: Diagnosis and Classification of Diabetes Mellitus (position statement), Diabetes Care 2010; 33:S62-9. Hemoglobin A1C results may be inaccurate if abnormal hemoglobins are present. us Terrance Aguirre MD LAB BLOOD ORDERABLES NO S TAT Final Result [facility] [address] [place] [address], * Lipid paneL, reflex to LDL cholesterol, direct (10/16/2024 9:31 AM EST) Triglycerides 254 mg/dL 10/16/2024 12:[address] [facility] Comment: Normal: ? Less than 150 mg/dL ? Borderline High: ?150 - 199 mg/dL ? High: ? 200 - 500 mg/dL ? Very High: ?Greater than 500 mg/dL ? Recommendations Adult Treatment Panel CDC: NIH Pub No [id number] 3rd report Earlene Chol Ed Prog (NCEP) Expert Panel on Detec, Eval, and Treat of High Chol in Adults, March 2001. ?? Cholesterol, Total 155 mg/dL 2023 12:39 PM EST [facility] Comment: Desirable ?Less than 200 mg/dL ? Borderline High ?200 - 239 mg/dL ? High ? 240 mg/dL or higher Recommendations Adult Treatment Panel CDC: ??NIH Pub No [id number] 3rd report Earlene Chol Ed Prog (NCEP) Expert Panel on Detec, Eval, and Treat of High Chol in Adults, March 2001. (2013)Recommendations: [place] [employer] Association/[place] College [employer] guidelines for cardiovascular/stroke risk are based on age, sex, race, total cholesterol, HDL cholesterol, blood pressure, blood pressure medication use, diabetes and smoking status. An AHA/ACC risk calculator can be found at http://www.cvriskcalculator.com. Cholesterol, HDL 35 mg/dL 10/16/20 12:39 PM [facility] Comment: High ?60 mg/dL or higher ? Low ? Less than 40 mg/dL ? Recommendations Adult Treatment Panel CDC: NIH Pub No [id number] 3rd report Earlene Chol Ed Prog (NCEP) Expert Panel ??on Detec, Eval, and Treat of High Cho in Adults, March 2001. (2013) Recommendations: [place] [employer] Association/[place] [employer] guidelines for cardiovascular/stroke risk are based on age, sex, race, total cholesterol, HDL cholesterol, blood pressure, blood pressure medication use, diabetes and smoking status. An AHA/ACC risk calculator can be found at http://www.cvriskcalculator.com. Fasting Specimen Yes 10/16/20 12:39 PM [facility] LDL Calculated 69 mg/dL 10/16/2024 12:39 PM [facility] Comment: Optimal ?Less than 100 mg/dL New optimal/above optimal ??100 - 129 mg/dL Borderline high ?130 - 159 mg/dL High ? 160 - 189 mg/dL Very high ?190 mg/dL or higher Blood Venous blood specimen / Unknown Venipuncture / Unknown 10/16/2024 9:31 AM EST 10/16/2024 9:36 AM EST us Terrance Aguirre MD LAB BLOOD ORDERABLES NO S TAT Final Result [facility] [address] [place] [address], * (ABNORMAL) Comprehensive metabolic panel (10/16/2024 9:31 AM EST) Total Bilirubin 0.4 0.1 - 1.2 mg/dL 10/16/2024 12:[address] [facility] Calcium 9.8 8.4 - 10.2 mg/dL 10/16/2024 12:39 PM [facility] CO2 21(L) 23 - 32 mmol/L 10/16/2024 12:[address] [facility] Chloride 109 100 - 111 mmol/L 10/16/2024 12:39 PM [facility] Creatinine 0.70 0.60 - 1.20 mg/dL 10/16/2024 12:39 PM [facility] Glucose 86 70 - 200 mg/dL 10/16/2024 12:39 PM [facility] Comment: Normal fasting glucose ?75-99 mg/dL Impaired fasting glucose ?100 - 125 mg/dL Fasting glucose ? >125 mg/dL - provisional diagnosis of diabetes mellitus Random glucose ?>= 200 mg/dl is considered diagnostic for diabetes ADA Guidelines: Classification and Diagnosis of Diabetes: Standards of Medical Care in Diabetes - 2020, Diabetes Care 2020; S15-S33. Alkaline Phosphatase 53 39 - 113 U/L 10/16/2024 12:39 PM [facility] Potassium 3.9 3.6 - 5.1 mmol/L 10/16/2024 12:39 PM [facility] Sodium 140 137 - 144 mmol/L 10/16/2024 12:39 PM [facility] Anion gap 10 3 - 11 mmol/L 10/16/2024 12:39 PM [facility] AST 15(L) 17 - 35 U/L 10/16/2024 12:39 PM [facility] ALT (SGPT) 19 8 - 39 U/L 10/16/2024 12:39 PM [facility] BUN 14 8 - 24 mg/dL 10/16/2024 12:39 PM [facility] Albumin 4.2 3.8 - 5.3 g/dL 10/16/2024 12:39 PM [facility] eGFR 109 >60 mL/min/1. 73m*2 10/16/2024 12:39 PM [facility] Comment: Calculation based on the Chronic Kidney Disease Epidemiology Collaboration (CKD-EPI) equation refit without adjustment for race. ? Chronic Kidney Disease less than 60 ml/min/1.73 m2 ? Kidney Failure less than 15 ml/min/1.73 m2 ? Age (Years) ? Average GFR ? 20 - 29 ? 116 ml/min/1.73 m2 ? 30 - 39 ? 107 ml/min/1.73 m2 ? 40 - 49 ?99 ml/min/1.73 m2 ? 50 - 59 ?93 ml/min/1.73 m2 ? 60 - 69 ?85 ml/min/1.73 m2 ? 70 + ? 75 ml/min/1.73 m2 ? Pursuant to [place] Public Act 06-120(1)(b)(1). ?? The 2020 CKD-EPI calculation used to estimate eGFR has only been validated for patients 18 years or older. Total Protein 7.2 6.2 - 8.1 g/dL 10/16/2024 12:[address] [facility] Blood Venous blood specimen / Unknown Venipuncture / Unknown 10/16/2024 9:31 AM EST 10/16/2024 9:36 AM EST us Terrance Aguirre MD LAB BLOOD ORDERABLES Abril enciso Result [facility] [address] [place] [address], * HIV combo antigen/antibody (07/23/2022 10:01 AM EDT) HIV Combo AB/AG Negative Negative 07/23/2022 1:[address] [facility] Blood Venous blood specimen / Unknown Venipuncture / Unknown 07/23/2022 10:01 AM EDT 07/23/2022 10:[address] [facility] - 07/23/2022 1:45 PM EDT This test is a 4th generation HIV Antigen-Antibody Combination assay, using a chemiluminescent microparticle immunoassay, for the simultaneous qualitative detection of human immuno- deficiency virus (HIV) p24 antigen and antibodies to HIV type 1 (HIV-1) and/or HIV type 2 (HIV-2) in human serum or plasma. The [employer] HIV Ag/Ab Combo assay is intended to be used as an aid in the diagnosis of HIV-1 and/or HIV-2 infection, including acute or primary HIV-1 infection. Initially-positive tests are repeated in duplicate. Repeat-positive tests will be confirmed for HIV by a HIV-1/HIV-2 rapid supplemental/ differentiation antibody assay. This testing algorithm is in line with the current CDC recommendations. us Terrance Aguirre MD LAB BLOOD ORDERABLES NO S TAT Final Result [facility] [address] [place] [address], [place] [phone] * Hepatitis C antibody (07/17/2019 7:42 AM EDT) Hepatitis C Ab Negative Negative 07/17/2019 1:[address] [facility] Comment:Anti-HCV (HCVAb) Not Detected. Patient is presumed not to be infected with HCV. Blood specimen (specimen) Venous blood specimen / Unknown Venipuncture / Unknown 07/17/2019 7:42 AM EDT 07/17/2019 7:43 AM EDT us Terrance Aguirre MD LAB BLOOD ORDERABLES NO S TAT Final Result [facility] [address] [place] [address], from Last 3 Months or Most Recently Relevant to Health Maintenance Insurance [employer] PPO Care Teams Quad Stayer Relationship Specialty Start Date End Date Terrance Aguirre MD [address] [facility] [address]ND FLOOR [facility] [place] [address] PCP - General Internal Medicine 07/16/19
--- OUTSIDE RECORDS SUMMARY | 2024-12-24 10:58 | XMS_ITS ---
Author Name [facility] Organization Unknown Results Test Name/Text Value Interpretation Date Range Source CREATININE 0.7mg/dL Normal 0.6 - 1.2 [facility] SODIUM 140mmol/L Normal 137 - 144 [facility] CHLORIDE 109mmol/L Normal 100 - 111 [facility] CALCIUM, TOTAL 9.8mg/dL Normal 8.4 - 10.2 [facility] AST (SGOT) 15U/L Below low normal 17 - 35 [facility] UREA NITROGEN 14mg/dL Normal 8 - 24 [facility] ALBUMIN, AUTOMATED 4.2g/dL Normal 3.8 - 5. 3 [facility] GLUCOSE 86mg/dL Normal 70 - 200 [facility] BICARBONATE 21mmol/L Below low normal 23 - 32 [facility] POTASSIUM 3.9mmol/L Normal 3.6 - 5.1 [facility] GLOMERULAR FILTRATION RATE ML/MIN/1.73 SQ M.PREDICTED 109mL/min/1.73m *2 Normal 60 - [facility] ALT (SGPT) 19U/L Normal 8 - 39 [facility] PROTEIN TOTAL 7.2g/dL Normal 6.2 - 8.1 [facility] BILIRUBIN, TOTAL 0.4mg/dL Normal 0.1 - 1.2 [facility] ALKALINE PHOSPHATASE 53U/L Normal [id number] 39 - 1 13 [facility] ANION GAP 10mmol/L Normal 3 - 11 [facility] CHLAMYDIA TRACHOMATIS, NAAT Negative Normal - [facility] THYROID STIM HORMONE 0.31uIU/mL Below low normal [id number] 1 0.35 - 4.94 [facility] FASTING? Yes Normal [facility] CHOLESTEROL, HDL 35mg/dL Normal [facility] LDL CHOLESTEROL FRIEDWALD CALC 69mg/dL Normal [facility] TRIGLYCERIDE 254mg/dL Normal [facility] CHOLESTEROL, TOTAL 155mg/dL Normal [facility] RBC DISTRIBUTION WIDTH 13.2% Normal [id number] 11.6 - 14.8 [facility] AUTO NRBC % 0% Normal [id number] 0 - [address] [facility] [address] 3.810*3/uL Normal 1.4 - 6.[address] [facility] [address] 0.410*3/uL Normal [id number] 0.2 - 0.8 [facility] MCHC 33.1g/dL Normal [id number] 32 - 36 [facility] MCH 29.4pg Normal 26 - 34 [facility] IMMATURE GRANULOCYTE % 0.6% Normal 0 - 0.6 [facility] EOSINOPHIL % 5.2% Normal 0 - 6 [facility] [address] 0.110*3/uL Normal 0 - 0 .2 [facility] MCV 88.8fL Normal [id number] 80 - 100 [facility] PLATELET COUNT 65749*3/uL Normal [id number] 150 - 440 [facility] BASOPHILS % 0.7% Normal 0 - [address] [facility] [address]. 2.410*3/uL Normal [id number] 0.7 - 4.[address] [facility] [address] 0.410*3/uL Above high normal [id number] 0 - 0.3 [facility] HEMATOCRIT 41.4% Normal [id number] 35 - 47 [facility] WHITE CELL COUNT 7.110*3/uL Normal [id number] 3.6 - 11 [facility] RED CELL COUNT 4.6610*6/???L Normal [id number] 3.8 - 5. 2 [facility] MONOCYTE % 5.8% Normal [id number] 4 - 12 [facility] NEUTROPHIL % 53.9% Normal [id number] 40 - 70 [facility] HEMOGLOBIN 13.7g/dL Normal [id number] 12 - 16 [facility] LYMPHOCYTE % 33.8% Normal [id number] 20 - 50 [facility] NEISSERIA GONORRHOEAE RIBOSOMAL RNA Negative Normal - [facility] RBC 11-20 Abnormal 0 - 2 [facility] COLOR OF URINE Yellow Normal - [facility] BACTERIA Many Abnormal - [facility] LEUKOCYTE ESTERASE Small Abnormal - [facility] EPITHELIAL CELLS Few Abnormal [id number] - [facility] PH OF URINE 6 Normal 5 - 8 [facility] KETONES URINE Negative Normal - [facility] UROBILINOGEN, URINE 1EU/dL Normal 0.2 - 1 [facility] NITRITE Positive Abnormal - [facility] GLUCOSE QUAL Negative Normal - [facility] BILIRUBIN, URINE Negative Normal - [facility] CLARITY OF URINE Clear Normal - [facility] PROTEIN QUAL Negative Normal [id number] - [facility] HEMOGLOBIN, URINE Small Abnormal - [facility] WBC 11-20 Abnormal 0 - 5 [facility] SYSMEX CASTS 3-5 Normal [id number] - [facility] SPECIFIC GRAVITY 1.025 Normal - [facility] GYCOHEMOGLOBIN A1C 5.5% Normal 4.4 - 6. 4 [facility] ANTI-RO 1Units Normal [id number] [facility] ANTI-NUCLEAR AB (ROSCOE), IGG BY KENYA None Detected Normal [id number] - [facility] CREATINE KINASE 87U/L Normal [id number] 22 - 269 [facility] ANTI-LA 4Units Normal [id number] [facility] ALDOLASE 1.9U/L Normal [id number] 1.2 - 7.6 [facility] History of Medication Use Medication Directions Dispensed Refills Start Date End Date Stat LEVORA-28 0.15-0.03 mg per tablet 03/31/2018 active albuterol HFA 90 mcg/actuation inhaler Inhale. 09/04/2024 active loratadine (CLARITIN) tablet 10 mg 08/01/2018 active topiramate (TOPAMAX) 100 mg tablet Take 100 mg by mouth nightly. 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 ProblemAct [facility] Rash and other nonspecific skin eruption active 2018-08-01 ProblemAct [facility] Other specified hypothyroidism active 2019-07-16 ProblemAct [facility] High triglycerides active EncounterDiagnosisAct [facility] Allergic contact dermatitis due to metals active 2018-05-13 ProblemAct [facility] Migraine active ProblemAct [facility] Immunizations Vaccine Date Source Lot Number Status Tdap 05/30/2023 [facility] [id number] completed Influenza, Quadrivalent 10/09/2021 [facility] c ompleted Tdap 11/25/2005 [facility] completed Influenza TIV (IM) 09/13/2017 [facility] comple jennie Rabies - Im Fibroblast Culture 06/06/2023 [facility] [id number] completed Td, Unspecified 11/25/2016 [facility] completed Influenza, Unspecified 08/15/2012 [facility] co mpleted COVID-19 mRNA (PFIZER) 12/31/2020 [facility] co mpleted COVID-19 MRNA (MODERNA) 10/14/2021 [facility] c ompleted Influenza, Injectable, Quadr ivalent, Preservative Free 09/12/2020 [facility] completed Typhoid Inactivated 06/06/2023 [facility] [id number] compl eted Influenza, Quadrivalent 09/15/2018 [facility] c ompleted Td, Unspecified 11/25/2002 [facility] completed DTaP, Unspecified 11/25/2005 [facility] complet ed Influenza, Unspecified 08/31/2016 [facility] co mpleted Influenza, Unspecified 08/25/2010 [facility] co mpleted Influenza, Injectable, Quadr ivalent, Preservative Free 08/16/2023 [facility] [id number] completed Influenza, Injectable, Quadr ivalent, Preservative Free 08/17/2022 [facility] completed Influenza, Seasonal, Injectable 09/13/2017 [facility] completed Influenza TIV (IM) 09/25/2019 [facility] comple jennie Influenza, Quadrivalent 09/12/2020 [facility] c ompleted Influenza, Unspecified 10/25/2011 [facility] co mpleted Influenza TIV (IM) 08/26/2019 [facility] comple jennie Influenza, Unspecified 08/25/2015 [facility] co mpleted Influenza, Injectable, Quadr ivalent, Preservative Free 10/09/2021 [facility] completed Influenza, Unspecified 09/04/2013 [facility] co mpleted COVID-19 mRNA (Eat Your Kimchi) 12/10/2020 [facility] co mpleted Influenza, Seasonal, Injectable 09/25/2019 [facility] completed Influenza (IM) Preservative Free 09/01/2015 [facility] 151 [id number] completed Influenza TIV (IM) 08/29/2011 [facility] [id number] comple jennie Influenza, Unspecified 09/25/2012 [facility] co mpleted Influenza, Unspecified 08/13/2014 [facility] co mpleted DTaP, Unspecified 12/26/2002 [facility] complet ed
--- OUTSIDE RECORDS SUMMARY | 2024-12-24 10:59 | XMS_ITS | Data Portability ---
Author Organization [facility], [facility] Address [address] [place] [id number] Assessment No assessment recorded. Plan of Treatment Reminders Order Date Submit Date Provider Last Modified By Organization Details Last Modified Time Details Appointments None record ed. Lab None record ed. Referral None record ed. Procedures None record ed. Surgeries None record ed. Imaging None record ed. Medication Orders None record ed. Patient TargetsNo targets recorded. Patient InstructionsNo instructions recorded. Reason for Referral None Reported. Medical Equipment None Reported. Vitals None Recorded Social History Question Answer Notes LastModified by Organizat ion Details LastModified Time Parent's Marital Status Unmarried Information not available 01/10/2012 Home Situation Mother Informati on not available 01/10/2012 Siblings 0 Information n ot available 01/10/2012 Parent's Name Yue Villaseñor Inform ation not available 01/10/2012 Parent's Name Biju Tarango jsriopolus Information not available 01/10/2012 Sex: Unknown Functional Status None recorded. Mental Status None recorded. Family History Nothing Reported. Medical History No medical history recorded. Gynecological HistoryNo gynecological history recorded. Obstetrics History GPAL:G 0 P 0 0 0 0 Past Encounters Encounter ID Performer Location Encounter Start Date Encounter Closed Date Diagnosis/Indication Diagnosis SNOMED-CT Code Diagnosis ICD10 Code Diagnosis Note [id number] [address] [address] 01/10/2012 08:24:49 01/10/2012 08:47:21 Health Concerns Section Related Observation LastModified by Organization Detai ls LastModified Time None Recorded Concern Status LastModified by Organization Details LastModified Time None Recorded Advance Directives Directive None Recorded Payers Encounter Date Sequence Insurance Name Policy Number Policy Julio Covered Member ID Julio Member ID Guarantor Name 01/10/2012 1 *SELF PAY* [facility] Episode No OBEpisode recorded.
== END 2024-12-24 08:39 | disposition home or self-care (01) ==
PROVIDERS: Visit Provider Nurse Practitioner Family
DX: N39.0 Urinary tract infection, site not specified (principal); R31.29 Other microscopic hematuria
CPT/HCPCS: 99203

== ENCOUNTER 2025-01-01 12:54 | Outpatient (REF) | payer OTHER, SELFPAY ==
--- NOTE | ~2025-01-01 | US_ITS ---
CLINICAL HISTORY: N39.0 - Urinary tract infection, site not specified US Renal Comparison: None Findings: Right kidney normal size and echotexture, 11.3 cm length. Left kidney normal size and echotexture, 11.7 cm length. No hydronephrosis of either kidney. Normal color Doppler. Urinary bladder is unremarkable. Prevoid volume 323 mL. Postvoid volume 24 mL. Bilateral ureteral jets are visualized. IMPRESSION: 1. No acute renal or urinary tract findings. This document has been electronically signed by: Lester Lomeli MD on 01/02/2025 09:17:35
--- OUTSIDE RECORDS SUMMARY | 2025-01-01 13:32 | XMS_ITS | Clinical Summary ---
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 to schedule her plaquenil clearance eye examination Allergic contact dermatitis due to metals 2017 Assessment & Plan (05/13/2018 2:38 PM EDT): To nickel (patient breaks with exposure to non sliver and gold metals) And to bandage adhesive (breaks out when wearing bandaids) Migraine Encounters Date Type Department Care Team Description 10/19/2024 Orders Only [facility] [address] [place] [address] Terrance Aguirre MD Low TSH level (Primary Dx) 10/16/2024 10:00 AM EST Office Visit [facility] Department of Internal Medicine [address] [place] [address] Terrance Aguirre MD Constipation, unspecified constipation type (Primary Dx); High triglycerides; Other specified hypothyroidism 10/16/2024 9:30 AM EST Lab [facility] Laboratory Draw Station [address] [place], [place] [id number] Annual physical exam; Urine abnormality 10/16/2024 Orders Only [facility] Department of Internal Medicine [address] [place] [address] Terrance Aguirre MD Urine abnormality (Primary Dx) [...] = 0.6 oz pur e alcohol) Occasionally Timelyities Answer Date Recorded In the past 12 months has e [employer]App, gas, oil, or water [employer] threatened to shut off services in your home? No 10/16/2024 AUDIT-C Answer Date Recorded Q1: How often do you have a drink containing alc ohol? Monthly or less 04/12/2021 Average Number of Drinks Not on file 021 Frequency of Binge Drinking Not on file 03/25 PHQ-2 Answer Date Recorded PHQ-2 Score 0 02/07/2024 [facility] [place] [facility] - Occupational Stress [...] any time in the past [facility], were you homeless or living in a assisted (including now)? No 10/16/2024 Comments No Sex [...] Upcoming Encounters Date Type Department Care Team ([facility] st Contact Info) Description 02/26/2025 9:40 AM EDT Office Visit [facility] Department of Internal Medicine [address] [place] [address] Terrance Aguirre MD [address] [facility] 2ND FLOOR [facility] [place] [address] Health Maintenance Due Date Last Done Comments [...] MD LAB URINE ORDERABLES Abril l Result [facility] [address] [place] [address], [place] [phone] * Harding boric acid tube, urine (10/16/2024 9:31 AM EST) Urine Urine specimen obtained by clean catch procedure / Unknown Non-blood Collection / Unknown 10/16/2024 9:31 AM EST 10/16/2024 9:36 AM EST Terrance Aguirre MD LAB MICROBIOLOGY - GENERA L ORDERABLES Final Result Performing Organization Address [facility] Co de Phone Number [facility] [address] [place] [address], [place] [phone] * (ABNORMAL) Complete Blood Count with Auto Differential (10/16/2024 9:31 AM EST) Pathologist [facility] White Cell Count 7.1 3.6 - 11.0 10*3/uL 10/16/2024 12:23 PM [facility] Red Cell Count 4.66 3.80 - 5.20 10*6/??L 10/16/2024 12:23 PM [facility] Hemoglobin 13.7 12.0 - 16.0 g/dL 10/16/2024 12:23 PM [facility] Hematocrit 41.4 35.0 - 47.0 % 10/16/2024 12:23 PM [facility] MCV 88.8 80.0 - 100.0 fL 10/16/2024 12:23 PM [facility] MCH 29.4 26.0 - 34.0 pg 10/16/2024 12:23 PM [facility] MCHC 33.1 32.0 - 36.0 g/dL 10/16/2024 12:23 PM [facility] RBC Distribution Width 13.2 11.6 - 14.8 % 10/16/2024 12:23 PM [facility] Platelet count 349 150 - 440 10*3/uL 10/16/2024 12:23 PM [facility] Neutrophils 53.9 40.0 - 70.0 % 10/16/2024 12:23 PM [facility] Immature Granulocytes 0.6 0.0 - 0.6 % 10/16/2024 12:23 PM [facility] Lymphocytes 33.8 20.0 - 50.0 % 10/16/2024 12:23 PM [facility] Monocytes 5.8 4.0 - 12.0 % 10/16/2024 12:23 PM [facility] Eosinophils 5.2 0.0 - 6.0 % 10/16/2024 12:23 PM [facility] Basophils 0.7 0.0 - 2.0 % 10/16/2024 12:23 PM [facility] Absolute Neutrophil Ct. 3.8 1.4 - 6.3 10*3/uL 10/16/2024 12:23 PM [facility] Absolute Lymphocyte Ct. 2.4 0.7 - 4.5 10*3/uL 10/16/2024 12:23 PM [facility] Absolute Monocyte Ct. 0.4 0.2 - 0.8 10*3/uL 10/16/2024 12:23 PM [facility] Absolute Eosinophil Ct. 0.4(H) 0.0 - 0.3 10*3/uL 10/16/2024 12:23 PM [facility] Absolute Basophil Ct. 0.1 0.0 - 0.2 10*3/uL 10/16/2024 12:23 PM [facility] nRBC 0.0 0.0 - 0.0 % 10/16/2024 12:23 PM [facility] Blood Venous blood specimen / Unknown Venipuncture / Unknown 10/16/2024 9:31 AM EST 10/16/2024 9:36 AM EST Terrance Aguirre MD LAB BLOOD ORDERABLES Abril l Result Performing Organization Address [facility] Co de Phone Number [facility] [address] [place] [address], * Neisseria gonorrhea NAAT (10/16/2024 9:31 AM EST) Neisseria gonorrhoeae ribosomal RNA Negative Negative 10/19/2024 2:06 PM EST [facility] Comment:Specimen is presumpt ively negative for Neisseria gonorrhoeae ribosomal RNA (rRNA). A negative result does not preclude the presence of a Neisseria gonorrhoeae infection because results are dependent on adequate specimen collection, absence of inhibitors, and sufficient rRNA to be detected. Urine Urine specimen / Unknown Non-blood Collection / Unknown 10/16/2024 9:31 AM EST 10/16/2024 9:36 AM EST Narrative [facility] - 10/19/2024 2:06 PM EST The Aptima Combo 2 Assay is a second-generation nucleic acid amplification test (NAAT) that utilizes target capture, Senior Insight Manager-Mediated Amplification (TMA??), and Dual Kinetic Assay (DKA) technologies for the qualitative detection and differentiation of ribosomal RNA (rRNA) from Chlamydia trachomatis (CT) and / or Neisseria gonorrhoeae (GC). Terrance Aguirre MD LAB MICROBIOLOGY - GENERA L ORDERABLES Final Result Performing Organization Address City/[facility]/ZIP Co de Phone Number [facility] [address] [place] [address], * Chlamydia trachomatis NAAT (10/16/2024 9:31 AM EST) Chlamydia trachomatis ribosomal RNA Negative Negative 10/19/2024 2:06 PM EST [facility] Comment:Specimen is presumpt ively negative for Chlamydia trachomatis ribosomal RNA (rRNA). A negative result does not preclude the presence of a Chlamydia trachomatis infection because results are dependent on adequate specimen collection, absence of inhibitors, and sufficient rRNA to be detected. Urine Urine specimen / Unknown Non-blood Collection / Unknown 10/16/2024 9:31 AM EST 10/16/2024 9:36 AM EST Narrative [facility] - 10/19/2024 2:06 PM EST The Aptima Combo 2 Assay is a second-generation nucleic acid amplification test (NAAT) that utilizes target capture, Senior Insight Manager-Mediated Amplification (TMA??), and Dual Kinetic Assay (DKA) technologies for the qualitative detection and differentiation of ribosomal RNA (rRNA) from Chlamydia trachomatis (CT) and / or Neisseria gonorrhoeae (GC). Terrance Aguirre MD LAB MICROBIOLOGY - GENERA L ORDERABLES Final Result [facility] [address] [place] [address], [place] [phone] * (ABNORMAL) Urinalysis, Complete - macroscopic and microscopic (10/16/2024 9:31 AM EST) Color Yellow Yellow, Straw, Dark yellow 10/16/2024 12:36 PM EST [facility] Clarity Clear Clear 10/16/2024 12:36 PM EST [facility] Specific [place] 1.025 >1.005 - <1.030 10/16/2024 12:36 PM EST [facility] pH 6.0 5.0 - 8.0 10/16/2024 12:36 PM [facility] Glucose Qual Negative Negative mg/dL 10/16/2024 12:36 PM [facility] Protein, Qual Negative Negative, Trace mg/dL 10/16/2024 12:36 PM EST [facility] Ketones, Urine Negative Negative mg/dL 10/16/2024 12:36 PM EST [facility] Bilirubin, Urine Negative Negative 10/16/20 12:36 PM EST [facility] Hemoglobin Small(A) Negative 10/16/2024 12:36 PM EST [facility] Nitrite Positive(A) Negative 10/16/2024 12:36 PM EST [facility] Urobilinogen 1.0 0.2 - 1.0 EU/dL 10/16/2024 12:36 PM EST [facility] Leukocytes Small(A) Negative 10/16/2024 12:36 PM EST [facility] WBC 11-20(A) 0 - 5 /hpf 10/16/2024 12:36 PM EST [facility] RBC 11-20(A) 0 - 2 /hpf 10/16/2024 12:36 PM EST [facility] Epithelial Cells Few(A) None Seen /hpf 10/16/2024 12:36 PM EST [facility] Bacteria Many(A) Negative 10/16/2024 12:36 PM EST [facility] Casts 3-5 0-2, 3-5 lpf 10/16/2024 12:36 PM EST [facility] Urine Urine specimen obtained by clean catch procedure / Unknown Non-blood Collection / Unknown 10/16/2024 9:31 AM EST 10/16/2024 9:36 AM EST us Terrance Aguirre MD LAB URINE ORDERABLES Abril enciso Result [facility] [address] [place] [address], * (ABNORMAL) Urine culture (10/16/2024 9:31 AM EST) Urine Culture >100,000 cfu/mL Escherichia coli(A) CUCO 10/18/2024 12:29 PM EST [facility] Urine Urine specimen obtained by [...] L ORDERABLES Final Result Performing Organization Address City/[facility]/ZIP Co de Phone Number [facility] [address] [place] [address], * (ABNORMAL) TSH (10/16/2024 9:31 AM EST) TSH 0.31(L) 0.35 - 4.94 uIU/mL 10/16/2024 12:51 PM EST [facility] Blood Venous blood specimen / Unknown Venipuncture / Unknown 10/16/2024 9:31 AM EST 10/16/2024 9:36 AM EST Terrance Aguirre MD LAB BLOOD ORDERABLES NO S TAT Final Result [facility] [address] [place] [address], [place] [phone] * Hemoglobin A1c (10/16/2024 9:31 AM EST) Hemoglobin A1C 5.5 4.4 - 6.4 % 10/16/2024 12:27 PM EST [facility] Blood Venous blood specimen / Unknown Venipuncture / Unknown 10/16/2024 9:31 AM EST 10/16/2024 9:36 AM EST Narrative [facility] - 10/16/2024 12:27 PM EST [...] BLOOD ORDERABLES NO S TAT Final Result [facility] [address] [place] [address], * Lipid paneL, reflex to LDL cholesterol, direct (10/16/2024 9:31 AM EST) Triglycerides 254 mg/dL 10/16/2024 12:39 PM EST [facility] Comment: Normal: ? Less than [...] High Chol in Adults, March 2001. (2013)Recommendations: [place] [employer]/[place] College [employer] guidelines for cardiovascular/stroke risk are based on age, sex, race, total cholesterol, HDL cholesterol, blood pressure, blood pressure medication use, diabetes and smoking status. An AHA/ACC risk calculator can be found at http://www.cvriskcalculator.com. Cholesterol, HDL 35 mg/dL 10/16/20 12:39 PM [facility] Comment: High ?60 mg/dL or higher ? Low ? Less than 40 mg/dL ? Recommendations Adult Treatment Panel CDC: NIH Pub No [id number] 3rd report Earlene Chol Ed Prog (NCEP) Expert Panel ??on Detec, Eval, and Treat of High Cho in Adults, March 2001. (2013) Recommendations: [place] [employer]/[place] College [employer] guidelines for cardiovascular/stroke risk are based on age, sex, race, total cholesterol, HDL cholesterol, blood pressure, blood pressure medication use, diabetes and smoking status. An AHA/ACC risk calculator can be found at http://www.cvriskcalculator.com. Fasting Specimen Yes 10/16/20 12:39 PM [facility] LDL Calculated 69 mg/dL 10/16/2024 12:39 PM [facility] Comment: Optimal ?Less than 100 mg/dL New optimal/above optimal ??100 - 129 mg/dL Borderline high ?130 - 159 mg/dL High ? 160 - 189 mg/dL Very high ?190 mg/dL or higher Blood Venous blood specimen / Unknown Venipuncture / Unknown 10/16/2024 9:31 AM EST 10/16/2024 9:36 AM EST us Terrance Aguirre MD LAB BLOOD ORDERABLES NO S TAT Final Result [facility] [address] [place] [address], * (ABNORMAL) Comprehensive metabolic panel (10/16/2024 9:31 AM EST) Total Bilirubin 0.4 0.1 - 1.2 mg/dL 10/16/2024 12:39 PM EST [facility] Calcium 9.8 8.4 - 10.2 mg/dL 10/16/2024 12:39 PM [facility] CO2 21(L) 23 - 32 mmol/L 10/16/2024 12:39 PM EST [facility] Chloride 109 100 - 111 mmol/L 10/16/2024 12:39 PM [facility] Creatinine 0.70 0.60 - 1.20 mg/dL 10/16/2024 12:39 PM [facility] Glucose 86 70 - 200 mg/dL 10/16/2024 12:39 PM [facility] Comment: Normal fasting glucose ?75-99 [...] 39 - 113 U/L 10/16/2024 12:39 PM [facility] Potassium 3.9 3.6 - 5.1 mmol/L 10/16/2024 12:39 PM [facility] Sodium 140 137 - 144 mmol/L 10/16/2024 12:39 PM [facility] Anion gap 10 3 - 11 mmol/L 10/16/2024 12:39 PM [facility] AST 15(L) 17 - 35 U/L 10/16/2024 12:39 PM [facility] ALT (SGPT) 19 8 - 39 U/L 10/16/2024 12:39 PM [facility] BUN 14 8 - 24 mg/dL 10/16/2024 12:39 PM [facility] Albumin 4.2 3.8 - 5.3 g/dL 10/16/2024 12:39 PM [facility] eGFR 109 >60 mL/min/1. 73m*2 10/16/2024 12:39 PM [facility] Comment: Calculation based on the [...] ? 75 ml/min/1.73 m2 ? Pursuant to [place] Public Act 06-120(1)(b)(1). ?? The 2020 CKD-EPI calculation used to estimate eGFR has only been validated for patients 18 years or older. Total Protein 7.2 6.2 - 8.1 g/dL 10/16/2024 12:39 PM EST [facility] Blood Venous blood specimen / Unknown Venipuncture / Unknown 10/16/2024 9:31 AM EST 10/16/2024 9:36 AM EST us Terrance Aguirre MD LAB BLOOD ORDERABLES Abril enciso Result [facility] [address] [place] [address], * HIV combo antigen/antibody (07/23/2022 10:01 AM EDT) HIV Combo AB/AG Negative Negative 07/23/2022 1:45 PM EDT [facility] Blood Venous blood specimen / Unknown Venipuncture / Unknown 07/23/2022 10:01 AM EDT 07/23/2022 10:01 AM EDT Narrative [facility] - 07/23/2022 1:45 PM EDT This test is a 4th generation HIV Antigen-Antibody Combination assay, using a chemiluminescent microparticle immunoassay, for the simultaneous qualitative detection of human immuno- deficiency virus (HIV) p24 antigen and antibodies to HIV type 1 (HIV-1) and/or HIV type 2 (HIV-2) in human serum or plasma. The CNZZ HIV Ag/Ab Combo assay is intended to [...] BLOOD ORDERABLES NO S TAT Final Result [facility] [address] [place] [address], [place] [phone] * Hepatitis C antibody (07/17/2019 7:42 AM EDT) Hepatitis C Ab Negative Negative 07/17/2019 1:30 PM EDT [facility] Comment:Anti-HCV (HCVAb) Not Detected. Patient is presumed not to be infected with HCV. Blood specimen (specimen) Venous blood specimen / Unknown Venipuncture / Unknown 07/17/2019 7:42 AM EDT 07/17/2019 7:43 AM EDT us Terrance Aguirre MD LAB BLOOD ORDERABLES NO S TAT Final Result [facility] [address] [place] [address], from Last 3 Months or Most Recently Relevant to Health Maintenance Insurance [employer] PPO Care Teams Development Professional Relationship Specialty Start Date End Date Terrance Aguirre MD [address] [facility] 2ND FLOOR [facility] [address] PCP - General Internal Medicine 07/16/19
--- OUTSIDE RECORDS SUMMARY | 2025-01-01 13:32 | XMS_ITS | Data Portability ---
Author Organization [facility] [address] Address [address] [place] [address] Assessment No assessment recorded. Plan of Treatment Reminders Order Date Submit Date Provider Last Modified By Organization Details Last Modified Time Details Appointments None recorded. Lab None recorded. Referral None recorded. Procedures None recorded. Surgeries None recorded. Imaging None recorded. Medication Orders prednisone 20 mg tablet 2023 024 [id number], [address] [place], [place], [id number], 4 12:12:48 hydroxyzine HCl 25 mg tablet 2023 024 [place] [id number], [address] [place], [place], [id number], 4 12:12:15 Patient TargetsNo targets recorded. Patient InstructionsNo instructions recorded. Reason for Referral None Reported. Problems Name Problem SNOMED Code Status Onset Date Resolution Date Notes Provider Name and Address Organization Details Recorded Time Hypothyroidism 14608622 Active Ebony Carrie null, [place] - [facility] 4 10:45:09 Migraine 26963168 Active Ebony Carrie null, [place] - [facility] 4 10:45:16 Allergic contact dermatitis 377653076 Active 2023 Ankit Wen NP [address] [place], [address] , [place] - [facility] 4 11:54:00 Problem Notes None recorded. Procedures Surgical History Date Name Laterality Status Provider Name and Address Organization Details Recorded Time procedure on gallbladder completed Ebony Butler PA - [facility] 06/29/2024 10:46:23 Imaging [...] Not Available Vitals Date Recorded Body height Body mass index (BMI) Body weight Body temperature Respiratory rate Oxygen saturation Oxygen saturation in Arterial blood by Pulse oximetry Heart rate Systolic blood pressure Diastolic blood pressure Provider Name and Address Organization Details Last Updated DateTime 154.94 cm 31.2 kg/m2 44390.7 4 g 98.4 [degF] 17 /min 98 % 98 % 76 /min 114 mm[Hg] 79 mm[Hg] Ebony Butler PA - [facility] 10:48:21 Social History Question Answer Notes LastModified by Organizat ion Details LastModified Time Tobacco Smoking Status Never Smoker Ebony Butler clemencia PA - [facility] 06/29/2024 10:45:31 What Is Your Level Of Alcohol Consumption? Occasional Information not available 06/29/2024 Are You Currently Employed? Yes Information not available 06/29/2024 What Is Your Relationship Status? Single Information not available 06/29/2024 Do You Use Any Illicit Or Recreational Drugs? No Information not available 06/29/2024 Have You Recently Traveled Abroad? Yes [place] 06/02/24-06/17 Information not available 06/29/2024 Do You [...] SNOMED-CT Code Diagnosis ICD10 Code Diagnosis Note [id number] [address] [facility] [address] [place] [address] 01/14/2019 09:44:00 01/14/2019 10:38:57 [id number] [facility] [place] [address] 04/03/2021 16:10:21 04/03/2021 18:49:06 [id number] [address] [place], [place] [address] 09/20/2020 16:50:00 09/20/2020 19:14:44 [id number] [address] [facility] frank, [place] [address] 04/20/2018 18:39:03 04/20/2018 19:19:22 [id number] [address] [facility] [place] [address] 04/24/2021 09:02:33 04/24/2021 09:47:36 [id number] Ankit Wen, CONCAVING MACHINE OPERATOR [address] [facility] [address] [facility] frank, [place] [address] 06/29/2024 10:12:55 06/29/2024 11:55:57 Allergic contact dermatitis 607252084 L23.9 Based on your presentati on and exam - I am diagnosis you with Contact Dermatitis This most likely can be related to dyes or environmen neyr exposures. The following recommenda tions will help [...] Member ID Guarantor Name 01/14/2019 1 [employer] [id number] Yue Villaseñor [id number] Yue Villaseñor 09/20/2020 1 [employer] [id number] Yue Villaseñor [id number] Yue Villaseñor 04/03/2021 1 [employer] [id number] Yue Villaseñor [id number] Yue Villaseñor 04/24/2021 1 [employer] [id number] Yue Villaseñor [id number] Yue Villaseñor 06/29/2024 1 [employer] [id number] Yue Villaseñor [id number] Yue Villaseñor Notes Date Note Type Note Provider Name and Address Organization Details Recorded Time 4 text/html UC Rash/Skin LesionReported bypatient.source of patient informationInformation obtained from patient; Patient arrived at Urgent Care ambulatory; Patient came back from vacation from [facility] starts developing a rash into 1 week. [...] history of treatment Ankit Wen NP [address] [place], [address], [place] - [facility] 06/29/2024 11:56:21 OBGyn Episode No OBEpisode recorded.
--- OUTSIDE RECORDS SUMMARY | 2025-01-01 13:32 | XMS_ITS | Data Portability ---
Author Organization [facility], [facility] Address [address] [place] [phone] Assessment No assessment recorded. Plan of Treatment [...] ot available 01/10/2012 Parent's Name Yue Villaseñor jkoopolus Inform ation not available 01/10/2012 Parent's Name [...] SNOMED-CT Code Diagnosis ICD10 Code Diagnosis Note [id number] [address] [address] 01/10/2012 08:24:49 01/10/2012 08:47:21 Health Concerns Section Related Observation LastModified by Organization Detai ls LastModified Time None Recorded Concern Status LastModified by Organization Details LastModified Time None Recorded Advance Directives Directive None Recorded Payers Encounter Date Sequence Insurance Name Policy Number Policy Julio Covered Member ID Julio Member ID Guarantor Name 01/10/2012 1 *SELF PAY* [facility] OBGyn Episode No OBEpisode recorded.
== END 2025-01-01 12:55 | disposition home or self-care (01) ==
LOC: HO.HMGCX 12:54
PROVIDERS: PCP Internal Medicine; Visit Provider Nurse Practitioner Family
DX: N39.0 Urinary tract infection, site not specified (principal)
CPT/HCPCS: 76770

== ENCOUNTER → 2025-01-01 12:57 | Outpatient (BNV) | payer OTHER, SELFPAY | PROVIDERS: PCP Internal Medicine; Visit Provider Specialist | DX: N39.0 Urinary tract infection, site not specified (principal) | CPT/HCPCS: 76770 ==

== ENCOUNTER 2025-02-04 16:23 | Outpatient (AMB) | payer OTHER, SELFPAY ==
--- NOTE | 2025-02-04 16:23 | A.OFFVIS_ITS ---
Intake Visit Reasons: 2m/US Intake Note: Patient presents today for tele visit follow up on: ultrasound results Imaging Completed: 01/01/25 Urology Medications: none Blood Thinner: none On Site Manager Required: No Allergies copper Allergy (Verified 02/04/25 16:46) Unknown zolmitriptan [From Zomig] Allergy (Verified 02/04/25 16:46) Unknown propanolol Allergy (Uncoded 02/04/25 16:46) Unknown latex Adverse Reaction (Mild, Uncoded 02/04/25 16:46) Itching Medication List - Last Reconciled 02/04/25 by ANAND Leong albuterol sulfate 90 mcg/actuation inhalation levonorgestrel-ethinyl estrad 0.15-0.03 mg (Levora-28) tabs PO levothyroxine (Synthroid) 125 mcg PO DAILY Is last menstrual period known: Yes Post menopausal: No Patient : No HPI Comments Details: Yue is a very pleasant 44-year-old female patient of Dr. Guillory. She has a past medical history of sleep apnea, migraines, hypothyroidism, hyperlipidemia, and asthma. She is being followed up on today via video telehealth. Of note, patient was seen approximately 2 months ago as anew patient for her history of recurrent urinary tract infections as well as microscopic hematuria at which time a retroperitoneal ultrasound was ordered for further assessment evaluation and her urine was sent for urine cytology. These results were reviewed with the patient today. 01/19 Bilateral kidneys with no calculi or hydronephrosis. The urinary bladder is unremarkable. Pre void bladder volume is approximately 325 mL postvoid bladder volume is approximately 25 mL. Urine cytology 12/19 Negative for high-grade urothelial carcinoma. She currently denies any bothersome urinary issues or concerns. She denies any previous history of nicotine dependence however was in the active and believes she had known chemical exposure. We discussed at length potential causes of microscopic hematuria as well as recurrent urinary tract infections. She does report a longstanding history of constipation. She otherwise offers no other issues or concerns at this time. [facility] Medical History Unspecified asthma, uncomplicated Unspecified abnormal cytological findings in specimens from cervix uteri Other unknown and unspecified cause of morbidity or mortality Sleep apnea Peptic ulcer Overweight Other microscopic hematuria Migraine without aura, not intractable, without status migrainosus Knee pain Hypothyroidism Hyperlipidemia, unspecified Encounter for other general counseling and advice on contraception Disorder of thyroid Contact with and (suspected) exposure to other hazardous substances Contact with and (suspected) exposure to other environmental pollution Asymptomatic varicose veins of unspecified lower extremity Abdominal pain Social History Patient : No Review of Systems Const All systems reviewed & are unremarkable except as noted in HPI and below Physical Exam Const General: cooperative, healthy appearing, comfortable, no acute distress, well developed, alert, awake and Physically active Orientation/consciousness: patient oriented x3 Resp Effort & Inspection: normal respiratory effort and able to speak in complete sentences Neuro General: patient oriented x3 Psych Appearance: grossly normal and well kempt Mental Status: mental status grossly normal Speech and movement: Clear speech present Affect: normal affect Attitude: cooperative Thought content: Normal thought content present Insight: Fair insight present (Psych) Judgement: Fair judgement present (Psych) Telehealth Telehealth Telehealth Platform: PWA Location of provider rendering services: practice address Location of patient: address on file Patient Identification confirmed using: Name, : Yes Telehealth method: video Patient verbally consented to treatment: Yes Patient verbally consented to billing insurance company: Yes Patient informed of any privacy concerns related to visit: Yes Minutes spent on Phone/Video with Pt.: 15 Results Reviewed Results Reviewed: Date of Service: 01/01/25 Procedure(s): US retroperitoneal comp Findings: Right kidney normal size and echotexture, 11.3 cm length. Left kidney normal size and echotexture, 11.7 cm length. No hydronephrosis of either kidney. Normal color Doppler. Urinary bladder is unremarkable. Prevoid volume 323 mL. Postvoid volume 24 mL. Bilateral ureteral jets are visualized. IMPRESSION: 1. No acute renal or urinary tract findings. Assessment & Plan Assessment & Plan (1) Microscopic hematuria: Code(s): R31.29 - Other microscopic hematuria Category: Medical (2) Recurrent urinary tract infection: Code(s): N39.0 - Urinary tract infection, site not specified Category: Medical Plan Recent retroperitoneal ultrasound results reviewed the patient today; as noted above. Recent urine cytology results reviewed with the patient today; as noted above. Patient currently denies any bothersome urinary issues or concerns. She reports be happy with current voiding parameters. We discussed potential causes of microscopic hematuria as well as further workup to include in office cystoscopy versus surveillance monitoring; risks and benefits of these interventions were discussed. Will schedule for in office cystoscopy Follow-up per doctor's orders; or sooner with any issues, concerns, and or questions. Patient Instructions: The patient had an opportunity to ask questions regarding the treatment plan. All questions were answered. Physical exam, labs, and imaging were discussed and reviewed in detail. As well as risks, benefits, and discussion of treatment choices. No major barriers to understanding were identified. The patient expressed understanding and agreement with the above treatment plan. The patient was made aware they should contact our office by phone for worsening of their current condition, the appearance of new symptoms, or with any questions or concerns. Compliance is encouraged with any medications and follow up testing that is ordered. It is a privilege to be allowed the opportunity to participate in? your urological care.? Again, if you have any questions or concerns If you have any questions or concerns please do not hesitate to contact me. The office is [phone]. This note is constructed using voice recognition software. While every effort has been made to ensure accuracy manager animation errors may have been included. Yours sincerely, ANAND Leong Coding Level of Care Code Tele Est Pt Level 3 (87293) Diagnoses Microscopic hematuria R31.29 Recurrent urinary tract infection N39.0
--- OUTSIDE RECORDS SUMMARY | 2025-02-04 19:19 | XMS_ITS | Clinical Summary ---
Author Organization [facility] Address [address] [place] [address] Care Team Providers Care Fretted Instrument Repairer Name Role Phone Terrance Aguirre MD Primary Care Provider [phone] Allergies Active Allergy Reactions Criticality Noted Date [...] plaquenil She will check labs today at [facility] She will call pearl fisherman to schedule her plaquenil clearance eye examination Allergic contact dermatitis due to metals 2017 Assessment & Plan (05/13/2018 2:38 PM EDT): To nickel (patient breaks with exposure to non sliver and gold metals) And to bandage adhesive (breaks out when wearing bandaids) Migraine Immunizations Name Administration Dates Next Due COVID-19 [...] = 0.6 oz pur e alcohol) Occasionally [facility] Utilities Answer Date Recorded In the past 12 months has th e electric, gas, oil, or water company threatened to shut off services in your home? No 10/16/2024 AUDIT-C Answer Date Recorded Q1: How often do you have a drink containing alc ohol? Monthly or less 04/12/2021 Average Number of Drinks Not on file 021 Frequency of Binge Drinking Not on file 03/25 PHQ-2 Answer Date Recorded PHQ-2 Score 0 02/07/2024 [facility] - Occupational Stress [...] any time in the past 12 m [facility], were you homeless or living in a longterm (including now)? No 10/16/2024 Comments No Sex [...] Upcoming Encounters Date Type Department Care Team (Late st Contact Info) Description 02/26/2025 9:40 AM EDT Office Visit [facility] Department of Internal Medicine [address] [place] [address] Terrance Aguirre MD [address] [address] Health Maintenance Due Date Last Done Comments [...] Procedure Name Priority Date/Time Associated Diagnosis Comments HIV COMBO ANTIGEN/ANTIBODY Routine 07/23/2022 10:01 AM EDT Encounter for general adult medical examination with abnormal findings HEPATITIS C ANTIBODY Routine 07/17/2019 7:42 AM EDT Tiredness from Last 3 Months or Most Recently Relevant to Health Maintenance Results * HIV combo antigen/antibody (07/23/2022 10:01 AM EDT) HIV Combo AB/AG Negative Negative 07/23/2022 1:45 PM EDT [facility] Blood Venous blood specimen / Unknown Venipuncture / Unknown 07/23/2022 10:01 AM EDT 07/23/2022 10:01 AM EDT Narrative [facility] - 07/23/2022 1:45 PM EDT This test is a 4th generation HIV Antigen-Antibody Combination assay, using a chemiluminescent microparticle immunoassay, for the simultaneous qualitative detection of human immuno- deficiency virus (HIV) p24 antigen and antibodies to HIV type 1 (HIV-1) and/or HIV type 2 (HIV-2) in human serum or plasma. The Handy HIV Ag/Ab Combo assay is intended to [...] BLOOD ORDERABLES NO S TAT Final Result Performing Organization Address City/[facility]/ZIP Co de Phone Number [facility] [address] [place] [address], [place] [phone] * Hepatitis C antibody (07/17/2019 7:42 AM EDT) [facility] Hepatitis C Ab Negative Negative 07/17/2019 1:30 PM EDT [facility] Comment:Anti-HCV (HCVAb) Not Detected. Patient is presumed not to be infected with HCV. Blood specimen (specimen) Venous blood specimen / Unknown Venipuncture / Unknown 07/17/2019 7:42 AM EDT 07/17/2019 7:43 AM EDT Terrance Aguirre MD LAB BLOOD ORDERABLES NO S TAT Final Result Performing Organization Address City/[facility] Co de Phone Number [facility] [address] [place] [address], [place] [phone] from Last 3 Months or Most Recently Relevant to Health Maintenance Insurance [employer] PPO Care Teams Fretted Instrument Repairer Relationship Specialty Start Date End Date Terrance Aguirre MD [address] [place] [address] [address] [facility] [place] [address] PCP - General Internal Medicine 07/16/19
--- OUTSIDE RECORDS SUMMARY | 2025-02-04 19:19 | XMS_ITS | Data Portability ---
Author Organization [facility] [address] Address [address] [place] [address] Assessment No assessment recorded. Plan of Treatment Reminders Order Date Submit Date Provider Last Modified By Organization Details Last Modified Time Details Appointments None recorded. Lab None recorded. Referral None recorded. Procedures None recorded. Surgeries None recorded. Imaging None recorded. Medication Orders prednisone 20 mg tablet 2023 024 JOANIE [facility] [id number], [address] [place], [place], [id number], 4 12:12:48 hydroxyzine HCl 25 mg tablet 2023 024 [place] [id number], [address], [place], [id number], 4 12:12:15 Patient TargetsNo targets recorded. Patient InstructionsNo instructions recorded. Reason for Referral None Reported. Problems Name Problem SNOMED Code Status Onset Date Resolution Date Notes Provider Name and Address Organization Details Recorded Time Hypothyroidism 14825968 Active Ebony Carrie null, [place] - [facility] 4 10:45:09 Migraine 58458766 Active Ebony Carrie null, [place] - [facility] 4 10:45:16 Allergic contact dermatitis 103207397 Active 2023 Ankit Wen NP [address] [place], [address] , [place] - [facility] 4 11:54:00 [...] Last Updated DateTime 154.94 cm 31.2 kg/m2 38003.7 4 g 98.4 [degF] 17 /min 98 [...] SNOMED-CT Code Diagnosis ICD10 Code Diagnosis Note [id number] [address] [facility] [address] [place] [address] 01/14/2019 09:44:00 01/14/2019 10:38:57 [id number] [facility] [place] [address] 04/03/2021 16:10:21 04/03/2021 18:49:06 [id number] [address] [place], [place] [address] 09/20/2020 16:50:00 09/20/2020 19:14:44 [id number] [address] [facility] frank, [place] [address] 04/20/2018 18:39:03 04/20/2018 19:19:22 [id number] [address] [facility] [place] [address] 04/24/2021 09:02:33 04/24/2021 09:47:36 [id number] Ankit Wen, ETYMOLOGY TEACHER [address] [facility] [address] [facility] frank, [place] [address] 06/29/2024 10:12:55 06/29/2024 11:55:57 Allergic contact dermatitis [id number] L23.9 Based on your presentati on and [...] Member ID Guarantor Name 01/14/2019 1 [employer] [id number] Yue Villaseñor [id number] Yue Villaseñor 09/20/2020 1 [employer] [id number] Yue Villaseñor [id number] Yue Villaseñor 04/03/2021 1 [employer] [id number] Yue Charleen [id number] Yue Villaseñor 04/24/2021 1 [employer]ET[employer] [id number] Yuemed Villaseñor [id number] Yue Villaseñor 06/29/2024 1 [employer] [id number] Yue Villaseñor [id number] Yue Villaseñor Notes Date Note Type Note Provider Name and Address Organization Details Recorded Time 4 text/html UC Rash/Skin LesionReported bypatient.source of patient informationInformation obtained from patient; Patient arrived at Urgent Care ambulatory; Patient came back from vacation from [facility] starts developing a rash into 1 week. [...] Ankit Wen NP [address] [place], [address], [place] - [facility] 06/29/2024 11:56:21 OBGyn Episode No OBEpisode recorded.
--- OUTSIDE RECORDS SUMMARY | 2025-02-04 19:19 | XMS_ITS | Data Portability ---
Author Organization [facility], [facility] Address [address] [place] [address] Assessment No assessment recorded. Plan of Treatment [...] SNOMED-CT Code Diagnosis ICD10 Code Diagnosis Note [id number] [address] [address] 01/10/2012 08:24:49 01/10/2012 08:47:21 Health Concerns Section Related Observation LastModified by Organization Detai ls LastModified Time None Recorded Concern Status LastModified by Organization Details LastModified Time None Recorded Advance Directives Directive None Recorded Payers Encounter Date Sequence Insurance Name Policy Number Policy Julio Covered Member ID Julio Member ID Guarantor Name 01/10/2012 1 *SELF PAY* [facility] OBGyn Episode No OBEpisode recorded.
== END 2025-02-04 17:16 | disposition home or self-care (01) ==
LOC: HO.HUSH 16:23
PROVIDERS: PCP Internal Medicine; Visit Provider Nurse Practitioner Family
DX: R31.29 Other microscopic hematuria (principal); N39.0 Urinary tract infection, site not specified
CPT/HCPCS: 99213

== ENCOUNTER 2025-04-15 08:53 | Outpatient (AMB) | payer OTHER, SELFPAY ==
--- NOTE | 2025-04-15 09:03 | A.OFFVIS_ITS ---
Intake Visit Reasons: cysto Intake Note: Patient is present for Cystoscopy Urology Medication:NONE Antibiotic Allergy:NONE Blood Thinner:NONE Lot:[id number] Exp:04/02/27 Backwinder Required: No Allergies copper Allergy (Verified 04/15/25 09:04) Unknown zolmitriptan [From Zomig] Allergy (Verified 04/15/25 09:04) Unknown propanolol Allergy (Uncoded 04/15/25 09:04) Unknown latex Adverse Reaction (Mild, Uncoded 04/15/25 09:04) Itching HPI Comments Details: Finasterisis is a pleasant male. She is a patient of Dr. Tirado. She is seen for the following urologic conditions - current UTI - microscopic hematuria Completed microscopic hematuria evaluation with upper tract ultrasound which was normal. Effective emptying. Urine cytology negative. Longstanding history of constipation Here for completion cystoscopy Retracted urethra Did discuss having UTIs when on her menses If this persists may discuss short term prophylaxis each month with nurse- practitioner in six-month [facility] Medical History Unspecified asthma, uncomplicated Unspecified abnormal cytological findings in specimens from cervix uteri Other unknown and unspecified cause of morbidity or mortality Sleep apnea Peptic ulcer Overweight Other microscopic hematuria Migraine without aura, not intractable, without status migrainosus Knee pain Hypothyroidism Hyperlipidemia, unspecified Encounter for other general counseling and advice on contraception Disorder of thyroid Contact with and (suspected) exposure to other hazardous substances Contact with and (suspected) exposure to other environmental pollution Asymptomatic varicose veins of unspecified lower extremity Abdominal pain Review of Systems Const Denies chills and Denies fever(s) Card Reports no additional complaints and Denies syncope Resp Denies cough GI Denies abdominal pain and Denies heartburn Reports as per HPI and Denies change in libido Neuro Denies syncope Psych Denies change in libido Endo Denies change in libido Physical Exam Const General: cooperative, healthy appearing, comfortable and no acute distress Orientation/consciousness: patient oriented x3 HEENT Face and sinus: Yes normal facial exam Mouth: moist mucous membranes Neck Neck: Yes normal visual inspection, Yes full ROM and Yes trachea midline Chest Chest palpation & inspection: normal inspection of the chest Resp Effort & Inspection: normal respiratory effort, able to speak in complete sentences and no respiratory distress GI Inspection: Yes normal to inspection Back/Spine/Pelvis Cervical Spine: normal cervical lordosis Thoracic/Lumbar Spine: thoracic and lumbar spine normal to inspection Skin General skin exam: no rashes or lesions noted Neuro General: patient oriented x3, gait normal, tone normal and moves all extremities Extrem General: Yes normal to inspection and Yes capillary refill normal Office Procedures Cystoscopy Consent Discussed risk and benefit or proposed procedure with the patient. Information consent for procedure given to the patient. Discussed technical aspects, risks, benefits and alternatives in full. Addressed all of the patient's questions and concerns regarding the procedure. The patient demonstrated knowledge and understanding. They wish to proceed with this procedure. Preparation The patient was prepped in the usual manner. A oil inspector was present and in the room. Genitalia was prepped with betadine solution in a sterile manner. Lidocaine Jelly 2% was placed into the urethra and 16Fr flexible Olympus cystoscope was inserted into the meatus after adequate lubrication. Procedure Meatus retracted Urethra retracted Bladder examination with retroflexion of cystoscope Bladder Orifices normal shape and position Trigone normal Bladder Capacity Normal Trabeculations Grade 0 Cellule Formation None Diverticulum Formation None Mucosal Erythema None Bladder Tumor None [id number] DISPOSABLE SCOPE URO-G FLEXIBLE SCOPE Procedure code (CPT) selection complete Office Meds lidocaine HCl 2 % mucosal jelly in applicator Performing Provider: Todd Coreas MD Performing Location: [facility] Administered by: Antonette Harris RN on 04/15/25 09:13 Dose Route Admin Location Dispensed Lot Number Expiration Date ND Insurance Examining Clerk 10 mL intra-urethral 10 mL nitrofurantoin monohydrate/macrocrystals 100 mg capsule Performing Provider: Todd Coreas MD Performing Location: [facility] Administered by: Antonette Harris RN on 04/15/25 09:13 Dose Route Admin Location Dispensed Lot Number Expiration Date ND Insurance Examining Clerk 100 mg PO 1 cap Results AMB Urinalysis, Automated UA Leukoctes 0 Felton/uL Last Edit by MILTON Vasquez on 04/15/25 09:15 UA Nitrite Negative Last Edit by MILTON Vasquez on 04/15/25 09:15 UA Urobilinogen 3.5 mg/dL Last Edit by MILTON Vasquez on 04/15/25 09:1 5 UA Protein 15 mg/dL Last Edit by MILTON Vasquez on 04/15/25 09:15 UA pH 6.0 Last Edit by MILTON Vasquez on 04/15/25 09:15 UA Blood 25 Emir/uL Last Edit by MILTON Vasquez on 04/15/25 09:15 UA Specific [place] 1.025 Last Edit by MILTON Vasquez on 04/15/25 09: 15 UA Ketone Negative Last Edit by MILTON Vasquez on 04/15/25 09:15 UA Bilirubin 0 mg/dL Last Edit by MILTON Vasquez on 04/15/25 09:15 UA Glucose 0 mg/dL Last Edit by MILTON Vasquez on 04/15/25 09:15 Results Reviewed Results Reviewed: Laboratory Last Values Urine pH (Auto) 6.0 04/15/25 09:14 Specific [place] (Auto) 1.025 04/15/25 09:14 Urine Protein (Auto) 15 mg/dL 04/15/25 09:14 Glucose (UA)(Auto) 0 mg/dL 04/15/25 09:14 Urine Ketones (Auto) Negative 04/15/25 09:14 Urine Blood (Auto) 25 Emir/uL 04/15/25 09:14 Urine Nitrite (Auto) Negative 04/15/25 09:14 Urine Bilirubin (Auto) 0 mg/dL 04/15/25 09:14 Urine Urobilinogen (Auto) 3.5 mg/dL 04/15/25 09:14 Leukocyte Esterase (Auto) 0 Felton/uL 04/15/25 09:14 Assessment & Plan Assessment & Plan (1) Recurrent urinary tract infection: Code(s): N39.0 - Urinary tract infection, site not specified Category: Medical (2) Microscopic hematuria: Code(s): R31.29 - Other microscopic hematuria Category: Medical Plan Six-month follow-up nurse-practitioner Orders: Orders AMB Cystoscopy Today N39.0 - Urinary tract infection, site not specified, R31.29 - Other microscopic hematuria AMB Urinalysis Automated Today Z13.9 - Encounter for screening, unspecified Patient Instructions: This note is constructed using voice recognition software. While every effort has been made to ensure accuracy assistant product manager errors may have been included. Imaging studies, laboratory and physical exam results were discussed and reviewed in detail. No major barriers to patient understanding were identified. An opportunity to ask questions regarding the treatment plan was provided. All questions were answered. The patient expressed understanding and agreement with the above treatment plan. The patient is aware they should contact our office by phone for worsening of their current condition or the appearance of new urologic symptoms. Compliance is encouraged with any medications and followup testing that is ordered. It is a privilege to participate in the urologic care of your patient. If you have any questions or concerns regarding treatment for the above conditions, or other urologic issues, please do not hesitate to contact me. The office telephone contact is [phone]. Sincerely, Dr Todd Coreas MD, [facility] - Urology Compassionate Specialist Care for the Genitourinary System Coding Level of Care Code Est Pt Level 3 (23247) Diagnoses Recurrent urinary tract infection N39.0 Microscopic hematuria R31.29 CPT Codes Cystoscopy - CPT: [id number] ([id number])
--- OUTSIDE RECORDS SUMMARY | 2025-04-15 09:03 | XMS_ITS | Data Portability ---
Author Organization [facility] [address] Address [address] [place] [address] Assessment No assessment recorded. Plan of Treatment Reminders Order Date Submit Date Provider Last Modified By Organization Details Last Modified Time Details Appointments None recorded. Lab None recorded. Referral None recorded. Procedures None recorded. Surgeries None recorded. Imaging None recorded. Medication Orders prednisone 20 mg tablet 2023 024 JOANIE [facility] #[id number], [address] [place], [place], [id number], 4 12:12:48 hydroxyzine HCl 25 mg tablet 2023 024 [place] [facility][id number], [address] [place], [place], [id number], 4 12:12:15 Patient TargetsNo targets recorded. Patient InstructionsNo instructions recorded. Reason for Referral None Reported. Problems Name Problem SNOMED Code Status Onset Date Resolution Date Notes Provider Name and Address Organization Details Recorded Time Hypothyroidism 23315326 Active Ebony Carrie null, PA - [facility] 4 10:45:09 Migraine 40767805 Active Ebony Carrie null, PA - [facility] 4 10:45:16 Allergic contact dermatitis 514401584 Active 2023 Ankit Wen NP [address] [place], [address] , [place] - [facility] 4 11:54:00 [...] Last Updated DateTime 154.94 cm 31.2 kg/m2 56373.7 4 g 98.4 [degF] 17 /min 98 % 98 % 76 /min 114 mm[Hg] 79 mm[Hg] Ebony Butler PA - [facility] 10:48:21 Social History Question Answer Notes LastModified by Organizat ion Details LastModified Time Tobacco Smoking Status Never Smoker Ebony Butler clemencia, [place] - [facility] 06/29/2024 10:45:31 What Is Your Relationship Status? Single Information not available 06/29/2024 Have You Recently Traveled Abroad? Yes [place] 06/02/24-06/17 Information not available 06/29/2024 Sex: Unknown Functional Status Question Answer Note LastModified by Organizat ion Details LastModified Time Do you use any illicit or recreational drugs? No Information not available 06/29/2024 Do you or have you ever used any other forms of tobacco or nicotine? No Information not available 06/29/2024 What is your level of alcohol consumption? Occasional Information not available 06/29/2024 Are you currently employed? Yes Information not available 06/29/2024 Mental Status None recorded. Family History Nothing [...] SNOMED-CT Code Diagnosis ICD10 Code Diagnosis Note [id number] [address] [place] [address] 01/14/2019 09:44:00 01/14/2019 10:38:57 [id number] [address] [facility], [place] [address] 04/03/2021 16:10:21 04/03/2021 18:49:06 [id number] [address] [facility], [place] [address] 09/20/2020 16:50:00 09/20/2020 19:14:44 [id number] [address] [facility], [place] [address] 04/20/2018 18:39:03 04/20/2018 19:19:22 [id number] [address] [facility] [address] 04/24/2021 09:02:33 04/24/2021 09:47:36 [id number] Ankit Wen, BIAS CUTTING MACHINE OPERATOR [address] [facility] [address] 06/29/2024 10:12:55 06/29/2024 11:55:57 Allergic contact dermatitis 802671531 L23.9 Based on your presentati on and [...] Recorded Advance Directives Directive None Recorded Payers Insurance Date Sequence Insurance Name Policy Number Policy Julio Covered Member ID Julio Member ID Guarantor Name 06/29/2024 1 [employer] [id number] Yue Villaseñor [id number] Yue Villaseñor Notes Date Note Type Note Provider Name and Address Organization Details Recorded Time 4 text/html UC Rash/Skin LesionReported bypatient.source of patient informationInformation obtained from patient; Patient arrived at Urgent Care ambulatory; Patient came back from vacation from [facility] starts developing a rash [...] Wen NP [address] [place], [address], [place] - [facility] 06/29/2024 11:56:21 OBGyn Episode No OBEpisode recorded.
--- OUTSIDE RECORDS SUMMARY | 2025-04-15 09:03 | XMS_ITS | Clinical Summary ---
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 Check labs today Follow up 6 months for refills, topical cortisone and labs Assessment & Plan (05/13/2018 2:47 PM EDT): Discussed diagnosis, etiology, and natural course and need for sun avoidance. Patient would like to start plaquenil She will check labs today at [facility] She will call director of publications to schedule her plaquenil clearance eye examination Allergic contact dermatitis due to metals 2017 Assessment & Plan (05/13/2018 2:38 PM EDT): To nickel (patient breaks with exposure to non sliver and gold metals) And to bandage adhesive (breaks out when wearing bandaids) Migraine Resolved Problems Problem Noted Date Diagnosed Date Resolved Date Rash and other nonspecific skin eruption 08/01/2018 03/16/2025 Assessment & Plan (08/01/2018 8:54 AM EDT): Most consistent urticaria No clear trigger claritin 10 mg po qpm Zyrtec 5 mg po qam Triamcinolone 0.1% cream Allergy if needed Immunizations Immunization Administration Dates Next Due COVID-19 MRNA (MODERNA) [...] = 0.6 oz pur e alcohol) Occasionally C Utilities Answer Date Recorded In the past [...] Answer Date Recorded PHQ-2 Score 0 02/07/2024 [facility]at ional [facility] - Occupational Stress Questionnaire Answer Date Recorded [...] any time in the past 12 m [facility], were you homeless or living in a retirement (including now)? No 10/16/2024 Comments No Sex [...] Care Team (Late st Contact Info) Description 06/01/2025 8:40 AM EDT Office Visit [facility] Department of Internal Medicine [address] [place] [address] Terrance Aguirre MD [address] [facility] [address] [facility] [place] [address] Health Maintenance Due Date Last Done Comments Breast Cancer Screening 1980 Hepatitis B Vaccines (1 of 3 - 19+ 3-dose series) 1999 Pneumococcal Vaccine: Pediatrics (0 to 5 Years) and At-Risk Patients (6 to 49 Years) (1 of 2 - PCV) 1999 Pap Smear 2001 Cervical Cancer Screening [...] this topic Meningococcal Vaccine Aged Out No stepehn marcial eligible based on patient's age to [...] AB/AG Negative Negative 07/23/2022 1:45 PM EDT [facility] Blood Venous blood specimen / Unknown Venipuncture / Unknown 07/23/2022 10:01 AM EDT 07/23/2022 10:01 AM EDT Narrative [facility] - 07/23/2022 1:45 PM EDT This test is a 4th generation HIV Antigen-Antibody Combination assay, using a chemiluminescent microparticle immunoassay, for the simultaneous qualitative detection of human immuno- deficiency virus (HIV) p24 antigen and antibodies to HIV type 1 (HIV-1) and/or HIV type 2 (HIV-2) in human serum or plasma. The Rodriges Alinity HIV Ag/Ab Combo assay is intended to [...] S TAT Final Result Performing Organization Address City/[facility]/ZIP Co de Phone Number [facility] [address] [place] [address], [place] [phone] * Hepatitis C antibody (07/17/2019 7:42 AM EDT) [facility] Signature Hepatitis C Ab Negative Negative 07/17/2019 1:30 PM EDT [facility] Comment:Anti-HCV (HCVAb) Not Detected. Patient is presumed not to be infected with HCV. Blood specimen (specimen) Venous blood specimen / Unknown Venipuncture / Unknown 07/17/2019 7:42 AM EDT 07/17/2019 7:43 AM EDT Terrance Aguirre MD LAB BLOOD ORDERABLES NO S TAT Final Result Performing Organization Address [facility] Co de Phone Number [facility] [address] [place] [address], from Last 3 Months or Most Recently Relevant to Health Maintenance Insurance [employer] PPO Care Teams Business Account Manager Relationship Specialty Start Date End Date Terrance Aguirre MD [address] [place] [address] [address] [facility] [place] [address] PCP - General Internal Medicine 07/16/19
--- OUTSIDE RECORDS SUMMARY | 2025-04-15 09:03 | XMS_ITS | Data Portability ---
Author Organization ID - [facility], [facility] Address [address] [place] [id number] Assessment No assessment recorded. Plan of Treatment [...] not available 01/10/2012 Parent's Name Biju Tarango Information not available 01/10/2012 Sex: Unknown Functional Status None recorded. Mental Status None recorded. Family History Nothing Reported. Medical History No medical history recorded. Gynecological HistoryNo gynecological history recorded. Obstetrics History GPAL:G 0 P 0 0 0 0 Past Encounters Encounter ID Performer Location Encounter Start Date Encounter Closed Date Diagnosis/Indication Diagnosis SNOMED-CT Code Diagnosis ICD10 Code Diagnosis Note [id number] Lidia Del Rosario MD [address] [id number] 01/10/2012 08:24:49 01/10/2012 08:47:21 Health Concerns Section Related Observation LastModified by Organization Detai ls LastModified Time None Recorded Concern Status LastModified by Organization Details LastModified Time None Recorded Advance Directives Directive None Recorded Payers Encounter Date Sequence Insurance Name Policy Number Policy Julio Covered Member ID [id number] Member ID Guarantor Name 01/10/2012 1 *SELF PAY* [facility] Episode No OBEpisode recorded.
== END 2025-04-15 09:51 | disposition home or self-care (01) ==
LOC: HO.HUSH 08:54
PROVIDERS: PCP Internal Medicine; Visit Provider Urology
DX: N39.0 Urinary tract infection, site not specified (principal); R31.29 Other microscopic hematuria; Z13.9 Encounter for screening, unspecified
CPT/HCPCS: 52000; 99213

== ENCOUNTER → 2025-04-15 08:53 | Outpatient (BNVA) | payer OTHER, SELFPAY | PROVIDERS: PCP Internal Medicine; Visit Provider Urology | DX: N39.0 Urinary tract infection, site not specified (principal); R31.29 Other microscopic hematuria | CPT/HCPCS: 52000; 81003; 99212 ==

== ENCOUNTER 2025-10-12 07:49 | Outpatient (AMB) | payer OTHER, SELFPAY ==
--- NOTE | 2025-10-12 07:55 | MHC.OFFVIS ---
Intake Visit Reasons: 6m/UA Intake Note: Patient is present for 6 mo follow up Urology Medication:NONE Antibiotic Allergy:NONE Blood Thinner:NONE Life Skills Trainer Required: No Accompanied by: Self / Same As Patient Allergies copper Allergy (Verified 10/12/25 11:21) Unknown zolmitriptan (From Zomig) Allergy (Verified 10/12/25 11:21) Unknown propanolol Allergy (Uncoded 10/12/25 11:21) Unknown latex Adverse Reaction (Mild, Uncoded 10/12/25 11:21) Itching Medication List - Last Reconciled 10/12/25 by KORI Leong- albuterol sulfate 90 mcg/actuation inhalation levonorgestrel-ethinyl estrad 0.15-0.03 mg (Levora-28) tabs PO levothyroxine (Synthroid) 125 mcg PO DAILY HPI Comments Details: Yue is a very pleasant 45-year-old female patient of Dr. Guillory. She has a past medical history of sleep apnea, migraines, hypothyroidism, hyperlipidemia, and asthma. She presents to the office today for follow-up of her recurrent urinary tract infections as well as microscopic hematuria. In discussion with the patient today she reports since her last office visit here she has been experiencing issues with bacterial vaginosis. She reports [facility] She also reports noting worsening symptoms of mixed urinary incontinence. In office urinalysis results reviewed with the patient today trace microscopic hematuria noted. Previous workup for microscopic hematuria has included a retroperitoneal ultrasound 01/19 that noted bilateral kidneys with no calculi or hydronephrosis. The urinary bladder is unremarkable. Pre void bladder volume is approximately 325 mL postvoid bladder volume is approximately 25 mL. Patient also underwent in office cystoscopy with Dr. Coreas 04/18 that noted retracted urethra otherwise within normal limits. We did discussed at length potential causes of microscopic hematuria as well as mixed urinary incontinence. We did discussed further treatment options and risks and benefits of these treatment options. She denies any previous history of nicotine dependence however was in the active and believes she had known chemical exposure. Urine cytology 12/19 Negative for high-grade urothelial carcinoma. She denies gross/visible hematuria, dysuria, foul smelling urine, changes to urinary stream, flank pain, fever, and or chills. She does report a long history of constipation. She otherwise offers no other issues or concerns at this time. [facility] Medical History Unspecified asthma, uncomplicated Unspecified abnormal cytological findings in specimens from cervix uteri Other unknown and unspecified cause of morbidity or mortality Sleep apnea Peptic ulcer Overweight Other microscopic hematuria Migraine without aura, not intractable, without status migrainosus Knee pain Hypothyroidism Hyperlipidemia, unspecified Encounter for other general counseling and advice on contraception Disorder of thyroid Contact with and (suspected) exposure to other hazardous substances Contact with and (suspected) exposure to other environmental pollution Asymptomatic varicose veins of unspecified lower extremity Abdominal pain Review of Systems Const All systems reviewed & are unremarkable except as noted in HPI and below Physical Exam Const General: cooperative, healthy appearing, comfortable, no acute distress, well developed, alert and awake Nutritional Appearance: overweight Orientation/consciousness: patient oriented x3 Limitations: no limitations HEENT Head: Yes normal to inspection, Yes normocephalic and Yes atraumatic Ears: hearing grossly normal bilaterally Eyes General: appearance normal, both eyes and all related structures Neck Neck: Yes normal visual inspection and Yes trachea midline Chest Chest palpation & inspection: normal inspection of the chest Resp Effort & Inspection: normal respiratory effort and able to speak in complete sentences Cardio Rate: regular rate GI Inspection: Yes normal to inspection General: Yes no CVA tenderness Back/Spine/Pelvis Back: no CVA tenderness Skin General skin exam: no rashes or lesions noted Neuro General: patient oriented x3 Extrem General: Yes normal to inspection Psych Appearance: grossly normal and well kempt Mental Status: mental status grossly normal Speech and movement: Normal speech and movement present and Clear speech present Affect: normal affect Attitude: cooperative Thought process: Normal thought process present Thought content: Normal thought content present Insight: Fair insight present (Psych) Judgement: Fair judgement present (Psych) Results AMB Urinalysis, Automated UA Leukoctes 0 Felton/uL Last Edit by MILTON Restrepo on 10/12/25 08:00 UA Nitrite Negative Last Edit by MILTON Restrepo on 10/12/25 08:00 UA Urobilinogen 0.2 mg/dL Last Edit by MILTON Restrepo on 10/12/25 08:00 UA Protein 0 mg/dL Last Edit by MILTON Restrepo on 10/12/25 08:00 UA pH 6.0 Last Edit by Florecita Garcia, [facility] on 10/12/25 08:00 UA Blood 10 Emir/uL Last Edit by Florecita Garcia, [facility] on 10/12/25 08:00 UA Specific [place] 1.020 Last Edit by Florecita Garcia, [facility] on 10/12/25 08:00 UA Ketone Negative Last Edit by Florecita Garcia, [facility] on 10/12/25 08:00 UA Bilirubin 0 mg/dL Last Edit by Florecita Garcia, [facility] on 10/12/25 08:00 UA Glucose 0 mg/dL Last Edit by Florecita Garcia, [facility] on 10/12/25 08:00 Results Reviewed Results Reviewed: Laboratory Last Values Urine pH (Auto) 6.0 10/12/25 07:59 Specific [place] (Auto) 1.020 10/12/25 07:59 Urine Protein (Auto) 0 mg/dL 10/12/25 07:59 Glucose (UA)(Auto) 0 mg/dL 10/12/25 07:59 Urine Ketones (Auto) Negative 10/12/25 07:59 Urine Blood (Auto) 10 Emir/uL 10/12/25 07:59 Urine Nitrite (Auto) Negative 10/12/25 07:59 Urine Bilirubin (Auto) 0 mg/dL 10/12/25 07:59 Urine Urobilinogen (Auto) 0.2 mg/dL 10/12/25 07:59 Leukocyte Esterase (Auto) 0 Felton/uL 10/12/25 07:59 Assessment & Plan Assessment & Plan (1) Urinary incontinence, mixed: Code(s): N39.46 - Mixed incontinence Category: Medical Plan We did discuss potential causes of mixed urinary incontinence as well as further treatment options. We did discussed near future in office urodynamics if symptoms continue and or persist We discussed correlation of constipation with lower urinary tract symptoms. Will continue with surveillance monitoring of microscopic hematuria. Will refer to pelvic floor therapy for further assessment evaluation. All questions were answered. We discussed bladder triggers and irritants. We also discussed healthy bathroom behaviors. Follow-up in 6 months with [facility]; or sooner with any issues, concerns, and or questions. Orders: Orders PT Pelvic Floor Evaluation Today N39.46 - Mixed incontinence Patient Instructions: The patient had an opportunity to ask questions regarding the treatment plan. All questions were answered. Physical exam, labs, and imaging were discussed and reviewed in detail. As well as risks, benefits, and discussion of treatment choices. No major barriers to understanding were identified. The patient expressed understanding and agreement with the above treatment plan. The patient was made aware they should contact our office by phone for worsening of their current condition, the appearance of new symptoms, or with any questions or concerns. Compliance is encouraged with any medications and follow up testing that is ordered. It is a privilege to be allowed the opportunity to participate in? your urological care.? Again, if you have any questions or concerns If you have any questions or concerns please do not hesitate to contact me. The office is [phone]. This note is constructed using voice recognition software. While every effort has been made to ensure accuracy feeder switchboard operator errors may have been included. Yours sincerely, ANAND Leong Coding Level of Care Code Est Pt Level 3 (63701) Diagnoses Urinary incontinence, mixed N39.46
== END 2025-10-12 08:17 | disposition home or self-care (01) ==
LOC: HO.HUSH 07:49
PROVIDERS: PCP Internal Medicine; Referring Provider Nurse Practitioner Family; Visit Provider Nurse Practitioner Family
DX: N39.46 Mixed incontinence (principal)
CPT/HCPCS: 99213

== ENCOUNTER → 2025-10-12 07:49 | Outpatient (BNVA) | payer OTHER, SELFPAY | PROVIDERS: PCP Internal Medicine; Visit Provider Nurse Practitioner Family | DX: N39.46 Mixed incontinence (principal) | CPT/HCPCS: 99212 ==